=== PATIENT | male | born 1965 | race African-American/Black ===

== ENCOUNTER 2017-01-23 00:52 | Emergency (ER) | payer BC ==
[~2017-01-23] VITALS: Ht 172.7 cm; Wt 124.2 kg
[~2017-01-23 00:52] MED LIST: OMEP40CA PO; eye drop OPR
[2017-01-23 00:56] VITALS: TEMP 37.2; Ht 172.7 cm; Wt 124.2 kg
[2017-01-23] MEDS ORDERED: PRLSR20 PO (01:15)
[2017-01-23] MEDS ORDERED: ONDANSETRON INJ 2 MG/ML 2 ML VIAL IV STA (01:31)
[2017-01-23] MEDS ORDERED: SODIUM CHLORIDE 0.9% 1000ML 1,000 ML IV STA (01:31)
[2017-01-23] MEDS ORDERED: HYDROmorphone INJ 1 MG/ML SYR IV STA (01:31)
--- NOTE | 2017-01-23 01:37 | EMERGENCY ROOM VISIT NOTE ---
History Report prepared by Janet: Shani Arango Under the Supervision of: Dr. Hiwot García M.D. First contact with patient: 01:05 Chief Complaint: RIB PAIN Stated Complaint: RIB PAIN History of Present Illness The patient is a 51 year old male who presents to the Emergency Room with complaints of persistent left rib pain that began prior to arrival. He currently rates his discomfort as a 7/10 in severity. The patient's notes that the patient fell over a trampoline in their house this evening and hit his left ribs. She denies any puncture wound, but states that he has been in excruciating pain since the accident. The patient's states that the patient has had difficulty breathing and speaking since the accident. The patient notes increased pain when sitting up. He denies any tobacco use. The patient states that he takes Omeprazole daily. Source of History: patient, spouse/significant other Onset: prior to arrival Position: other (left rib) Symptom Intensity: 7/10 Timing: other (persistent) Modifying Factors (Worsening): other (sitting up) Note: Associated Symptoms: difficulty breathing and speaking, recent fall Review of Systems See HPI for pertinent positives & negatives. A total of 10 systems reviewed and were otherwise negative. Past Medical & Surgical Medical Problems: (1) Advance care planning (2) Encephalitis (3) Fracture of ribs, two, closed (4) Gastroesophageal reflux disease (5) Laryngeal cancer (6) Left lower lobe pneumonia Family History Diabetes mellitus Heart disease Hypertension Social History Smoking Status: Never Smoker Alcohol Use: none Marital Status: Housing Status: lives with family Occupation Status: employed Current/Historical Medications Scheduled Bimatoprost (Lumigan), 1 DROPS OP HS Fish Oil ([place]-3), 1 CAP PO DAILY Omeprazole (Prilosec), 40 MG PO DAILY Scheduled PRN Hydrocodone/Acetaminophen 5MG/325MG ([place] 5MG/325MG), 1-2 TABLETS PO Q6 PRN for Pain Allergies Coded Allergies: No Known Allergies (Verified , `, 01/23/17) Physical Exam Vital Signs Date Time Temp Pulse Resp B/P Pulse Ox O2 Delivery O2 Flow Rate FiO2 01/23/17 05:41 72 18 118/62 95 Room Air 01/23/17 03:14 87 18 135/84 96 Nasal Cannula 2.0 01/23/17 02:00 65 16 116/80 99 Nasal Cannula 2.0 01/23/17 01:05 80 01/23/17 00:56 37.2 79 30 164/104 96 Room Air Physical Exam Vital signs reviewed. General: Well-appearing male, in some discomfort, noted to be hypertensive. HEENT: No scleral icterus, PERRLA, neck supple. Atraumatic. CHEST: Tender to palpation over the left anterior ribs. Cardiovascular: Regular rate and rhythm, no extra sounds. Pulmonary: Diminished breath sounds on left. Normal work of breathing, splinting with deep inspiration Abdomen: Soft, nontender, nondistended, positive bowel sounds. Musculoskeletal: Atraumatic, no peripheral edema. Neurologic: Patient awake alert and oriented x 3 Skin: Warm, dry, no rash Medical Decision & Procedures ER Provider Diagnostic Interpretation: Rib unilateral x-ray: poor inspiratory effort, normal appearing mediastinum, no pneumothorax, no obvious rib fracture. 1 view chest x-ray: no evidence of pneumothorax, no rib fracture, cardiomegaly, mediastinal widening, likely positional. Laboratory Results 01/23/17 02:00 Red Blood Count 4.60, Mean Corpuscular Volume 84.6, Mean Corpuscular Hemoglobin 28.7, Mean Corpuscular Hemoglobin Concent 33.9, Mean Platelet Volume 11.3, Neutrophils (%) (Auto) 67.6, Lymphocytes (%) (Auto) 18.5, Monocytes (%) (Auto) 9.0, Eosinophils (%) (Auto) 3.9, Basophils (%) (Auto) 0.7, Neutrophils # (Auto) 4.74, Lymphocytes # (Auto) 1.30, Monocytes # (Auto) 0.63, Eosinophils # (Auto) 0.27, Basophils # (Auto) 0.05 01/23/17 02:00 Test 01/23/17 02:00 White Blood Count 7.01 K/uL (4.8-10.8) Red Blood Count 4.60 M/uL (4.7-6.1) Hemoglobin 13.2 g/dL (14.0-18.0) Hematocrit 38.9 % (42-52) Mean Corpuscular Volume 84.6 fL (80-100) Mean Corpuscular Hemoglobin 28.7 pg (25-34) Mean Corpuscular Hemoglobin Concent 33.9 g/dl (32-36) Platelet Count 148 K/uL (130-400) Mean Platelet Volume 11.3 fL (7.4-10.4) Neutrophils (%) (Auto) 67.6 % Lymphocytes (%) (Auto) 18.5 % Monocytes (%) (Auto) 9.0 % Eosinophils (%) (Auto) 3.9 % Basophils (%) (Auto) 0.7 % Neutrophils # (Auto) 4.74 K/uL (1.4-6.5) Lymphocytes # (Auto) 1.30 K/uL (1.2-3.4) Monocytes # (Auto) 0.63 K/uL (0.11-0.59) Eosinophils # (Auto) 0.27 K/uL (0-0.5) Basophils # (Auto) 0.05 K/uL (0-0.2) RDW Standard Deviation 43.8 fL (36.4-46.3) RDW Coefficient of Variation 14.2 % (11.5-14.5) Immature Granulocyte % (Auto) 0.3 % Immature Granulocyte # (Auto) 0.02 K/uL (0.00-0.02) Anion Gap 5.0 mmol/L (3-11) Est Creatinine Clear Calc Drug Dose 101.9 ml/min Estimated GFR () 89.6 Estimated GFR (Non- 77.3 BUN/Creatinine Ratio 13.6 (10-20) Calcium Level 8.1 mg/dl (8.5-10.1) Total Bilirubin 0.2 mg/dl (0.2-1) Direct Bilirubin < 0.1 mg/dl (0-0.2) Aspartate Amino Transf (AST/SGOT) 26 U/L (15-37) Alanine Aminotransferase (ALT/SGPT) 47 U/L (12-78) Alkaline Phosphatase 52 U/L (45-117) Total Protein 6.9 gm/dl (6.4-8.2) Albumin 3.6 gm/dl (3.4-5.0) Laboratory results per my review. Medications Administered Medications (Trade) Dose Ordered Sig/Eliseo Route Start Time Stop Time Status Last Admin Dose Admin Hydromorphone HCl (Dilaudid Inj) 1 mg NOW STAT IV 01/23/17 01:31 01/23/17 01:33 DC 01/23/17 01:41 1 MG Ondansetron HCl 4 mg 4 mg NOW STAT IV 01/23/17 01:31 01/23/17 01:33 DC 01/23/17 01:39 4 MG Sodium Chloride (Nss 1000ml) 1,000 ml @ 999 mls/hr Q1H1M STAT IV 01/23/17 01:31 01/23/17 02:31 DC 01/23/17 01:42 999 MLS/HR Acetaminophen/ Hydrocodone Bitart ([place] 5/325mg Home Pack) 1 homepack UD ONCE PO 01/23/17 04:45 01/23/17 04:46 DC 01/23/17 05:03 1 HOMEPACK Acetaminophen/ Hydrocodone Bitart ([place] 7.5/325 Tab) 1 tab NOW STAT PO 01/23/17 04:40 01/23/17 04:41 DC 01/23/17 05:02 1 TAB ECG Indication: SOB/dyspnea Rate (beats per minute): 81 Rhythm: sinus rhythm Findings: PAC, other (right axis deviation) ED Course 0127: Past medical records reviewed. The patient was evaluated in room A10. A complete history and physical examination was performed. 0131: Ordered Sodium Chloride 1000 ml @ 999 mls/hr IV, Zofran Inj 4 mg IV, Dilaudid Inj 1 mg IV. 0403: I reevaluated the patient and he is resting comfortably. I discussed the exam findings with him and I discussed the treatment plan. He verbalized complete understanding and agreement. He is ready to go home. 0440: Ordered [place] 7.5/235 tab, 1 tab PO. 0445: [place] 5/325 mg homepack 1 homepack PO. Medical Decision Differential diagnosis: Rib contusion, rib fracture, pneumothorax, pneumonia, PE This patient was evaluated and appeared to be in significant discomfort. IV access was obtained and laboratory work was drawn. Patient was given IV Dilaudid and Zofran, hydrated with normal saline solution. EKG reveals sinus rhythm with PACs. Chest x-ray with rib series was performed and reveals no evidence of rib fracture or pneumothorax to my interpretation. Patient was reevaluated and continues to complain of pain. He was given 7.5 mg [place] tablet. Vital signs have remained stable. The patient was educated to the findings. He was given instructions on incentive spirometry. Patient was discharged follow-up with his physician in 24-48 hours. He will return to the ER at any time for worsening of symptoms or any medical concerns. Impression Primary Impression: Rib contusion Scribe Attestation The scribe's documentation has been prepared under my direction and personally reviewed by me in its entirety. I confirm that the note above accurately reflects all work, treatment, procedures, and medical decision making performed by me. Departure Information Dispostion Home / Self-Care Prescriptions Hydrocodone/Acetaminophen 5MG/325MG ([place] 5MG/325MG) Tab 1-2 TABLETS PO Q6 Y for Pain, #20 TAB Prov: Hiwot García M.D. 01/23/17 Referrals Yani Hurt MD (PCP) Forms HOME CARE DOCUMENTATION FORM, IMPORTANT VISIT INFORMATION, WORK / SCHOOL INSTRUCTIONS Patient Instructions My [facility] Additional Instructions Diagnosis: Left rib contusion [place] one to 2 tabs every 6 hours as needed for severe pain. Do not drive or take Tylenol with this medication. Ibuprofen 600 mg every 6 hours as needed for pain with food. Incentive spirometry 10 times every hour while awake. Follow-up with your physician this week for reevaluation. Return to the ER for worsening of symptoms or any medical concerns. Problem Qualifiers Primary Impression: Rib contusion Encounter type: initial encounter Laterality: left Qualified Codes: S20.212A - Contusion of left front wall of thorax, initial encounter
[2017-01-23 02:13] LABS: BASO % 0.7 %; BASO ABS # 0.05 K/uL (0-0.2); COMPLETE YES; EOS % 3.9 %; HEMATOCRIT 38.9 % (42-52); IG% 0.3 %; LYMPH % 18.5 %; MEAN CELL VOLUME 84.6 fL (80-100); MEAN CORPUSCULAR HEMOGLOBIN 28.7 pg (25-34); MEAN CORPUSCULAR HGB CONC 33.9 g/dl (32-36); MEAN PLATELET VOLUME 11.3 fL (7.4-10.4); NEUT % 67.6 %; PLATELET COUNT 148 K/uL (130-400); WHITE BLOOD COUNT 7.01 K/uL (4.8-10.8)
[2017-01-23 02:31] LABS: ALT/SGPT 47 U/L (12-78); AST/SGOT 26 U/L (15-37); BLOOD UREA NITROGEN 15 mg/dl (7-18); BUN/CREATININE RATIO 13.6 (10-20); CALCIUM 8.1 mg/dl (8.5-10.1); CARBON DIOXIDE 28 mmol/L (21-32); CHLORIDE 111 mmol/L (98-107); GLUCOSE 149 mg/dl (70-99); POTASSIUM 3.7 mmol/L (3.5-5.1); SODIUM 144 mmol/L (136-145)
[2017-01-23 02:34] LABS: ALKALINE PHOSPHATASE 52 U/L (45-117)
[2017-01-23] MEDS ORDERED: HYDROCODONE/ACETAMINOPHEN 7.5/325MG TAB PO STA (04:40)
[2017-01-23] MEDS ORDERED: NORCO 5/325MG HOME PACK PO ONE (04:45)
[2017-01-23] MEDS ORDERED: HYDR-5688 PO (04:51)
[2017-01-23 05:41] VITALS: BP 118/62; PULSE 72; O2SAT 95
--- NOTE | 2017-01-23 07:56 | DIAGNOSTIC IMAGING REPORT ---
CHEST ONE VIEW PORTABLE HISTORY: Left-sided chest trauma. COMPARISON: Chest 10/02/2013. FINDINGS: Cardiac silhouette is mildly enlarged. There are low lung volumes. No focal lung consolidations to suggest pneumonia. No evidence for pulmonary edema. No pleural effusions. No pneumothorax. IMPRESSION: Mild cardiomegaly. Otherwise, no acute process within the chest. Electronically signed by: Robbi Pavon M.D. 01/23/2017 7:54 AM Dictated Date/Time: 01/23/2017 7:53 AM
--- NOTE | 2017-01-23 08:02 | DIAGNOSTIC IMAGING REPORT ---
LEFT RIBS UNILATERAL WITH PA CHEST CLINICAL HISTORY: Left-sided chest pain. COMPARISON STUDY: Chest 01/23/2017. FINDINGS: No rib fractures. No pneumothorax. The heart remains mildly enlarged. Low lung volumes. No focal lung consolidations to suggest pneumonia. IMPRESSION: No rib fractures. No pneumothorax. Electronically signed by: Robbi Pavon M.D. 01/23/2017 8:00 AM Dictated Date/Time: 01/23/2017 7:58 AM
[2017-01-24] MEDS ORDERED: BIMA0.01 OP (01:15)
[2017-01-24] MEDS ORDERED: OMEG10007 PO (01:17)
[2017-01-24] MEDS ORDERED: OMEP40CA41 PO (16:19)
== END 2017-01-23 05:42 | disposition home or self-care (01) ==
LOC: EDBD 00:52 → C.EDA 00:53
DX: S20.212A Contusion of left front wall of thorax, initial encounter (principal); I49.1 Atrial premature depolarization; K21.9 Gastro-esophageal reflux disease without esophagitis; Z79.899 Other long term (current) drug therapy; Z85.21 Personal history of malignant neoplasm of larynx; Z82.49 Family history of ischemic heart disease and other diseases of the circulatory system; Z83.3 Family history of diabetes mellitus; W01.0XXA Fall on same level from slipping, tripping and stumbling without subsequent striking against object, initial encounter

== ENCOUNTER 2017-01-24 15:41 | Inpatient (IN) | payer BC ==
[~2017-01-24] VITALS: Ht 172.7 cm; Wt 124.0 kg
[~2017-01-24 15:41] MED LIST changes: +BIMA0.01 OP; +HYDR-5688 PO; +OMEG10007 PO; -OMEP40CA PO; +PRLSR20 PO; -eye drop OPR
--- NOTE | 2017-01-24 15:59 | EMERGENCY ROOM VISIT NOTE ---
History Report prepared by Janet: Uzair Aguirre Under the Supervision of: Dr. Gen Lentz D.O. First contact with patient: 15:53 Chief Complaint: RIB PAIN Stated Complaint: CHEST PAIN History of Present Illness The patient is a 51 year old male who presents to the Emergency Room with complaints of persistent left sided rib pain beginning 2 nights ago. He notes he was walking and tripped on a trampoline, and fell blunt on a pole they had removed from the trampoline and set aside. Afterwards, he was having difficulty breathing, and notes worsening of his pain with breathing, walking, and especially coughing. The patient was here 2 days ago, and was prescribed Ryde which he notes has not relieved his pain. He last took the Ryde around 0830 this morning. He called Dr. Sol and was told to come to the ER for a CT scan. The patient denies having any pain through his neck or back, abdominal pain, or dizziness or lightheadedness upon standing. The patient reports taking medications regularly for acid reflux. Source of History: patient Onset: 2 days ago Position: other (left sided ribs) Quality: other (rib pain) Timing: other (persistent) Modifying Factors (Worsening): breathing, movement, other (coughing) Associated Symptoms: No abdominal pain, No back pain, No neck pain Note: The patient denies dizziness or lightheadedness. Review of Systems See HPI for pertinent positives & negatives. A total of 10 systems reviewed and were otherwise negative. Past Medical & Surgical Medical Problems: (1) Encephalitis (2) Fracture of ribs, two, closed (3) Gastroesophageal reflux disease (4) Laryngeal cancer (5) Left lower lobe pneumonia Family History Diabetes mellitus Heart disease Hypertension Social History Smoking Status: Never Smoker Alcohol Use: none Marital Status: Housing Status: lives with family Occupation Status: employed Current/Historical Medications Scheduled Bimatoprost (Lumigan), 1 DROPS OP HS Fish Oil ([place]-3), 1 CAP PO DAILY Omeprazole (Prilosec), 40 MG PO DAILY Scheduled PRN Hydrocodone/Acetaminophen 5MG/325MG ([place] 5MG/325MG), 1-2 TABLETS PO Q6 PRN for Pain Allergies Coded Allergies: No Known Allergies (Verified , `, 01/23/17) Physical Exam Vital Signs Date Time Temp Pulse Resp B/P Pulse Ox O2 Delivery O2 Flow Rate FiO2 01/24/17 17:15 82 20 134/80 92 Room Air 01/24/17 17:13 79 01/24/17 15:49 36.8 83 20 147/71 95 Room Air Physical Exam GENERAL: Patient is awake alert, and uncomfortable appearing. Patient is moving around gingerly. EYES: The conjunctivae are clear. The pupils are round and reactive. EARS, NOSE, MOUTH AND THROAT: The nose is without any evidence of any deformity. Mucous membranes are moist tongue is midline NECK: The neck is nontender and supple. RESPIRATORY: Normal respiratory effort is noted there is no evidence of wheezing rhonchi or rales CARDIOVASCULAR: Regular rate and rhythm noted there no murmurs rubs or gallops normal S1 normal S2 GASTROINTESTINAL: The abdomen is soft. Bowel sounds are present in all quadrants. Abdomen is nontender BACK: No midline tenderness or or step-off noted range of motion in flexion extension as well as rotation no signs of muscle spasm noted MUSCULOSKELETAL/EXTREMITIES: There is no evidence of gross deformity full range of motion is noted in the hips and shoulders. Significant tenderness over the left anterior chest wall. Circular area consistent with the mechanism of injury. Surrounding ecchymosis noted. SKIN: There is no obvious evidence of any rash. There are no petechiae, pallor or cyanosis noted. NEUROLOGIC: Patient is awake alert and oriented x3 strength is symmetric patellar reflexes are 2+ bilaterally Medical Decision & Procedures ER Provider Diagnostic Interpretation: Radiology results as stated below per my review and radiologist interpretation: CT SCAN OF THE CHEST WITHOUT IV CONTRAST FINDINGS: Thyroid: Imaged portions of the thyroid gland are normal in size and attenuation. Thoracic aorta: The thoracic aorta is normal in caliber and demonstrates standard 3-vessel arch anatomy. Heart: The heart is mildly enlarged and without pericardial effusion. There are scattered coronary artery calcifications. Lungs and pleural spaces: Evaluation of the lung parenchyma is modestly degraded by motion artifact. Mild emphysematous change is observed. There is a small to moderate left pleural effusion with associated left basilar consolidation. A trace right pleural effusion is identified with associated atelectasis. Layering secretions are noted in the trachea. No pneumothorax is seen. Mediastinum: There is no mediastinal lymphadenopathy. Alycia: Not well assessed without IV contrast. Axillae: There is no axillary lymphadenopathy. Upper abdomen: The liver is enlarged and steatotic. Partially visualized upper abdominal viscera is otherwise within normal limits. Skeletal structures: There are acute and nondistracted left anterior 6th and 7th rib fractures. There are mild and age indeterminant superior endplate compression deformities of T5, T7, and T8. No lytic or blastic bony lesions are seen. Arthritic change is noted in the left shoulder. A right cervical rib is incidentally noted. Soft tissues: There is soft tissue contusion the anterior left lower chest. IMPRESSION: 1. Cardiomegaly and emphysema. 2. There are acute nondistracted left anterior 6th and 7th rib fractures. Associated soft tissue contusion is seen in the anterior left lower chest. 3. There are mild and age indeterminant superior endplate compression deformity is at T5, T7, and T8. Correlate for point tenderness. 4. Small to moderate left pleural effusion with associated consolidation. This could represent atelectasis and/or an infectious/inflammatory pneumonitis. 5. There is trace right pleural effusion. 6. Hepatomegaly and hepatic steatosis. Electronically signed by: Faheem Thomas M.D. 01/24/2017 5:05 PM Dictated Date/Time: 01/24/2017 4:43 PM Laboratory Results 01/24/17 17:05 Red Blood Count 4.82, Mean Corpuscular Volume 85.3, Mean Corpuscular Hemoglobin 29.3, Mean Corpuscular Hemoglobin Concent 34.3, Mean Platelet Volume 11.5, Neutrophils (%) (Auto) 71.8, Lymphocytes (%) (Auto) 13.7, Monocytes (%) (Auto) 12.3, Eosinophils (%) (Auto) 1.6, Basophils (%) (Auto) 0.4, Neutrophils # (Auto ) 6.15, Lymphocytes # (Auto) 1.17, Monocytes # (Auto) 1.05, Eosinophils # (Auto ) 0.14, Basophils # (Auto) 0.03 01/24/17 17:05 Test 01/24/17 17:05 White Blood Count 8.56 K/uL (4.8-10.8) Red Blood Count 4.82 M/uL (4.7-6.1) Hemoglobin 14.1 g/dL (14.0-18.0) Hematocrit 41.1 % (42-52) Mean Corpuscular Volume 85.3 fL (80-100) Mean Corpuscular Hemoglobin 29.3 pg (25-34) Mean Corpuscular Hemoglobin Concent 34.3 g/dl (32-36) Platelet Count 142 K/uL (130-400) Mean Platelet Volume 11.5 fL (7.4-10.4) Neutrophils (%) (Auto) 71.8 % Lymphocytes (%) (Auto) 13.7 % Monocytes (%) (Auto) 12.3 % Eosinophils (%) (Auto) 1.6 % Basophils (%) (Auto) 0.4 % Neutrophils # (Auto) 6.15 K/uL (1.4-6.5) Lymphocytes # (Auto) 1.17 K/uL (1.2-3.4) Monocytes # (Auto) 1.05 K/uL (0.11-0.59) Eosinophils # (Auto) 0.14 K/uL (0-0.5) Basophils # (Auto) 0.03 K/uL (0-0.2) RDW Standard Deviation 44.1 fL (36.4-46.3) RDW Coefficient of Variation 14.1 % (11.5-14.5) Immature Granulocyte % (Auto) 0.2 % Immature Granulocyte # (Auto) 0.02 K/uL (0.00-0.02) Prothrombin Time 10.8 SECONDS (9.0-12.0) Prothromb Time International Ratio 1.0 (0.9-1.1) Activated Partial Thromboplast Time 25.7 SECONDS (21.0-31.0) Partial Thromboplastin Ratio 1.0 Anion Gap 8.0 mmol/L (3-11) Est Creatinine Clear Calc Drug Dose 133.4 ml/min Estimated GFR () 117.5 Estimated GFR (Non- 101.4 BUN/Creatinine Ratio 12.0 (10-20) Calcium Level 8.4 mg/dl (8.5-10.1) Total Bilirubin 0.6 mg/dl (0.2-1) Aspartate Amino Transf (AST/SGOT) 27 U/L (15-37) Alanine Aminotransferase (ALT/SGPT) 41 U/L (12-78) Alkaline Phosphatase 50 U/L (45-117) Total Protein 7.1 gm/dl (6.4-8.2) Albumin 3.6 gm/dl (3.4-5.0) Medications Administered Medications (Trade) Dose Ordered Sig/Eliseo Route Start Time Stop Time Status Last Admin Dose Admin Oxycodone HCl 10 mg 10 mg NOW STAT PO 01/24/17 16:04 01/24/17 16:05 DC 01/24/17 16:19 10 MG Sodium Chloride (Nss 1000ml) 1,000 ml @ 125 mls/hr Q8H STAT IV 01/24/17 16:47 01/25/17 00:46 01/24/17 17:08 125 MLS/HR Morphine Sulfate (MoRPHine SULFATE INJ) 4 mg Q15M PRN IV 01/24/17 17:00 02/07/17 16:59 01/24/17 17:10 4 MG Ondansetron HCl (Zofran Inj) 4 mg NOW STAT IV 01/24/17 16:47 01/24/17 16:48 DC 01/24/17 17:09 4 MG ED Course 1555: The patient was evaluated in room A10. A complete history and physical examination were performed. 1604: Ordered Oxycodone HCl 10 mg PO. 1642: I updated the patient. 1647: Ordered Zofran Inj 4 mg IV, and NSS 1,000 ml @ 125 mls/hr IV. 1655: I discussed the patient's case with Dr. Urban who recommends drainage of pleural fluids. 1700: Ordered Morphine Sulfate 4 mg IV. 1735: I discussed the patient's case with Dr. Sol. The patient will be evaluated for further management. Medical Decision Differential diagnosis: Etiologies such as fracture, dislocation, intra-abdominal, pneumothorax, intrathoracic , intracranial, neurologic, as well as other traumatic pathologies were entertained. Nursing notes reviewed. The patient is a 51-year-old male who presented to the emergency department for an evaluation of chest pain. The patient had a fall 2 days ago he landed on a bar that was sticking up from the ground onto his left chest. The patient had very severe left-sided chest pain. He was seen initially in our emergency department. X-rays at that time did not reveal any definite rib fractures. The patient returns emergency department today because worsening and ongoing pain. He appeared to be in extreme pain when I initially evaluated him. He was treated with pain medication in the emergency department. His symptoms improved somewhat but he still had very severe pain with any movement. CAT scan of the chest did reveal multiple rib fractures but more worrisome was the presence of pleural fluid which could be consistent with hemothorax. I discussed this case with the on-call [facility] [address] hospitalist. I also discussed his case with the on-call cardiothoracic surgeon. The patient will require further pain management in the hospital but will likely require drainage of the pleural fluid to avoid any constipation, road. The patient was reevaluated multiple times. Consults Time Called: 1650 Consulting Physician: AUNDREA De La Paz Returned Call: 1655 I discussed the patient's case with Dr. Urban who recommends drainage of pleural fluids. Additional Consults: Time Called: 1725 Consulted Physician: AUNDREA Patterson Returned Call: 1735 Additional Comments: I discussed the patient's case with Dr. Sol. The patient will be evaluated for further management. Impression Primary Impression: Contusion of left chest wall Additional Impressions: Multiple fractures of ribs of left side Hemothorax Scribe Attestation The scribe's documentation has been prepared under my direction and personally reviewed by me in its entirety. I confirm that the note above accurately reflects all work, treatment, procedures, and medical decision making performed by me. Departure Information Dispostion Being Evaluated By Hospitalist Referrals Yani Hurt MD (PCP) Patient Instructions My [facility] Problem Qualifiers Primary Impression: Contusion of left chest wall Encounter type: subsequent encounter Qualified Codes: S20.212D - Contusion of left front wall of thorax, subsequent encounter Additional Impressions: Multiple fractures of ribs of left side Encounter type: subsequent encounter Fracture type: closed Fracture healing : with routine healing Qualified Codes: S22.42XD - Multiple fractures of ribs , left side, subsequent encounter for fracture with routine healing
[2017-01-24] MEDS ORDERED: OXYCODONE HCL IR 5 MG TAB (IMMEDIATE RELEASE) PO STA (16:04)
[2017-01-24] MEDS ORDERED: OMEP40CA41 PO (16:19)
[2017-01-24] MEDS ORDERED: SODIUM CHLORIDE 0.9% 1000ML 1,000 ML IV STA (16:47)
[2017-01-24] MEDS ORDERED: ONDANSETRON INJ 2 MG/ML 2 ML VIAL IV STA (16:47)
[2017-01-24] MEDS ORDERED: MoRPHine SULFATE 4 MG/ML 1 ML CARP\\VIAL IV PRN (17:00)
--- NOTE | 2017-01-24 17:07 | DIAGNOSTIC IMAGING REPORT ---
CT SCAN OF THE CHEST WITHOUT IV CONTRAST CLINICAL HISTORY: Fall. Left-sided chest wall pain. COMPARISON STUDY: Chest x-ray dated 01/23/2017. Chest CT dated 05/24/2013. TECHNIQUE: CT scan of the thorax was performed from the thoracic inlet to the upper abdomen. Images are reviewed in the axial, sagittal, and coronal planes. IV contrast was not administered for this examination as per the referring clinician. CT DOSE: 1020.93 mGy.cm FINDINGS: Thyroid: Imaged portions of the thyroid gland are normal in size and attenuation. Thoracic aorta: The thoracic aorta is normal in caliber and demonstrates standard 3-vessel arch anatomy. Heart: The heart is mildly enlarged and without pericardial effusion. There are scattered coronary artery calcifications. Lungs and pleural spaces: Evaluation of the lung parenchyma is modestly degraded by motion artifact. Mild emphysematous change is observed. There is a small to moderate left pleural effusion with associated left basilar consolidation. A trace right pleural effusion is identified with associated atelectasis. Layering secretions are noted in the trachea. No pneumothorax is seen. Mediastinum: There is no mediastinal lymphadenopathy. Alycia: Not well assessed without IV contrast. Axillae: There is no axillary lymphadenopathy. Upper abdomen: The liver is enlarged and steatotic. Partially visualized upper abdominal viscera is otherwise within normal limits. Skeletal structures: There are acute and nondistracted left anterior 6th and 7th rib fractures. There are mild and age indeterminant superior endplate compression deformities of T5, T7, and T8. No lytic or blastic bony lesions are seen. Arthritic change is noted in the left shoulder. A right cervical rib is incidentally noted. Soft tissues: There is soft tissue contusion the anterior left lower chest. IMPRESSION: 1. Cardiomegaly and emphysema. 2. There are acute nondistracted left anterior 6th and 7th rib fractures. Associated soft tissue contusion is seen in the anterior left lower chest. 3. There are mild and age indeterminant superior endplate compression deformity is at T5, T7, and T8. Correlate for point tenderness. 4. Small to moderate left pleural effusion with associated consolidation. This could represent atelectasis and/or an infectious/inflammatory pneumonitis. 5. There is trace right pleural effusion. 6. Hepatomegaly and hepatic steatosis. Electronically signed by: Faheem Thomas M.D. 01/24/2017 5:05 PM Dictated Date/Time: 01/24/2017 4:43 PM
[2017-01-24 17:16] LABS: BASO % 0.4 %; BASO ABS # 0.03 K/uL (0-0.2); COMPLETE YES; EOS % 1.6 %; HEMATOCRIT 41.1 % (42-52); IG% 0.2 %; LYMPH % 13.7 %; LYMPH ABS # 1.17 K/uL (1.2-3.4); MEAN CELL VOLUME 85.3 fL (80-100); MEAN CORPUSCULAR HEMOGLOBIN 29.3 pg (25-34); MEAN CORPUSCULAR HGB CONC 34.3 g/dl (32-36); MEAN PLATELET VOLUME 11.5 fL (7.4-10.4); MONO % 12.3 %; NEUT % 71.8 %; PLATELET COUNT 142 K/uL (130-400); RED BLOOD COUNT 4.82 M/uL (4.7-6.1); WHITE BLOOD COUNT 8.56 K/uL (4.8-10.8)
[2017-01-24 17:30] LABS: PROTHROMBIN TIME (PATIENT) 10.8 SECONDS (9.0-12.0)
[2017-01-24 17:33] LABS: CALCIUM 8.4 mg/dl (8.5-10.1); CREATININE 0.84 mg/dl (0.60-1.40); POTASSIUM 3.6 mmol/L (3.5-5.1)
[2017-01-24 18:15] VITALS: O2SAT 92; Ht 172.7 cm; Wt 124.0 kg
[2017-01-24] MEDS ORDERED: HYDROCODONE/ACETAMOPHEN 5/325MG TAB PO PRN ×2 (18:15)
[2017-01-24] MEDS ORDERED: ACETAMINOPHEN 325 MG TAB PO PRN (18:15)
[2017-01-24] MEDS ORDERED: ONDANSETRON INJ 2 MG/ML 2 ML VIAL IV PRN (18:15)
[2017-01-24] MEDS ORDERED: ZOLPIDEM TARTRATE 5 MG TAB PO PRN (18:15)
[2017-01-24] MEDS ORDERED: HYDROmorphone INJ 0.5 MG/0.5 ML SYR IV PRN (18:30)
[2017-01-24] MEDS ORDERED: IPRATROPIUM BROMIDE NEB SOLN 0.02% 2.5 ML VIAL INH PRN (18:30)
[2017-01-24] MEDS ORDERED: LEVALBUTEROL 1.25MG/0.5ML NEB INH PRN (18:30)
[2017-01-24 19:49] VITALS: BP 136/77; PULSE 72; TEMP 36.7; O2SAT 92
[2017-01-24 20:00] VITALS: BP 136/77; PULSE 72; TEMP 36.7; O2SAT 92
--- NOTE | 2017-01-24 20:05 | History and Physical ---
History & Physical Date & Time of Service: Jan 24, 2017 at 19:48 Chief Complaint: Fracture Of Ribs, Two, Closed,Lt Lower Lobe Pneumo Primary Care Physician: Yani Hurt MD History of Present Illness Source: patient, spouse The patient is a 51-year-old male who initially presented to the emergency department last evening with left sided rib cage pain that began after falling on a trampoline pole. Since that time his pain has worsened, and he has become more short of breath. He was advised to come to the emergency department due to worsening symptoms, and CT of the chest tonight confirms acute left anterior sixth and seventh rib fractures and left lower lobe pneumonia with pleural effusion per radiology reading, but on a clinical basis could be suggestive of a hemothorax. 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 Status post completion of radiation therapy 07/20/2013 received 6300 cGy Status: Resolved Family History Diabetes mellitus Heart disease Hypertension Social History Smoking Status: Never Smoker Smokeless Tobacco Use: No Alcohol Use: none Drug Use: none Marital Status: Housing status: lives with family Occupational Status: employed Immunizations History of Influenza Vaccine: Yes History of Tetanus Vaccine?: unknown History of Pneumococcal: No History of Hepatitis B Vaccine: No Multi-Drug Resistant Organisms History of MDRO: No Allergies Coded Allergies: No Known Allergies (Verified , `, 01/23/17) Home Medications Scheduled Bimatoprost (Lumigan), 1 DROPS OP HS Fish Oil ([place]-3), 1 CAP PO DAILY Omeprazole (Prilosec), 40 MG PO DAILY Scheduled PRN Hydrocodone/Acetaminophen 5MG/325MG ([place] 5MG/325MG), 1-2 TABLETS PO Q6 PRN for Pain Review of Systems The patient denies palpitations, lower extremity swelling, vision change, hearing change, sore throat, fevers, chills, sweats, weight change, fatigue, nausea, vomiting, abdominal pain, pelvic pain, blood in urine or stool, dysuria , urinary frequency or urgency, lightheadedness, dizziness, headache, memory loss, rash, imbalance, focal or generalized weakness, numbness or tingling in arms or legs, arthralgias or myalgias, neck pain, night sweats, or allergy symptoms. The review of systems is otherwise negative other than for that already noted above, and at least 10 systems have been reviewed. Physical Exam Vital Signs Date Time Temp Pulse Resp B/P Pulse Ox O2 Delivery O2 Flow Rate FiO2 01/24/17 18:46 80 18 129/90 92 Room Air 01/24/17 18:15 92 Room Air 01/24/17 17:15 82 20 134/80 92 Room Air 01/24/17 17:13 79 01/24/17 15:49 36.8 83 20 147/71 95 Room Air The patient is awake, well-developed and adequately nourished, alert and oriented 3, normocephalic and atraumatic, lying in bed and in moderate distress secondary to pain. HEENT--PERRL, EOMI, mucous membranes and oropharynx dry. Neck--supple, no JVD or bruits, thyroid normal, trachea midline, no adenopathy. Heart--normal S1 and S2, no extra beats, no murmurs, rubs or gallops. Lungs--decreased breath sounds at the left base, mild to moderate intermittent respiratory distress associated with painful respiration, no accessory muscle use. Abdomen--normal bowel sounds and soft, nontender and nondistended, no hernias or masses, no organomegaly. Extremities--no cyanosis, clubbing or edema. There are good distal pulses b/l. Dermatologic--bruise over left sixth and seventh rib areas. Neurologic--cranial nerves II through XII grossly intact, motor and sensory examination normal. Rheumatologic--I'm dictating the dictated appetite severe pain over left sixth and seventh ribs. Psychiatric--normal affect. Diagnostics Laboratory Results Results Past 24 Hours Test 01/24/17 17:05 Range/Units White Blood Count 8.56 4.8-10.8 K/uL Red Blood Count 4.82 4.7-6.1 M/uL Hemoglobin 14.1 14.0-18.0 g/dL Hematocrit 41.1 42-52 % Mean Corpuscular Volume 85.3 80-100 fL Mean Corpuscular Hemoglobin 29.3 25-34 pg Mean Corpuscular Hemoglobin Concent 34.3 32-36 g/dl Platelet Count 142 130-400 K/uL Mean Platelet Volume 11.5 7.4-10.4 fL Neutrophils (%) (Auto) 71.8 % Lymphocytes (%) (Auto) 13.7 % Monocytes (%) (Auto) 12.3 % Eosinophils (%) (Auto) 1.6 % Basophils (%) (Auto) 0.4 % Neutrophils # (Auto) 6.15 1.4-6.5 K/uL Lymphocytes # (Auto) 1.17 1.2-3.4 K/uL Monocytes # (Auto) 1.05 0.11-0.59 K/uL Eosinophils # (Auto) 0.14 0-0.5 K/uL Basophils # (Auto) 0.03 0-0.2 K/uL RDW Standard Deviation 44.1 36.4-46.3 fL RDW Coefficient of Variation 14.1 11.5-14.5 % Immature Granulocyte % (Auto) 0.2 % Immature Granulocyte # (Auto) 0.02 0.00-0.02 K/uL Prothrombin Time 10.8 9.0-12.0 SECONDS Prothromb Time International Ratio 1.0 0.9-1.1 Activated Partial Thromboplast Time 25.7 21.0-31.0 SECONDS Partial Thromboplastin Ratio 1.0 Sodium Level 142 136-145 mmol/L Potassium Level 3.6 3.5-5.1 mmol/L Chloride Level 106 98-107 mmol/L Carbon Dioxide Level 28 21-32 mmol/L Anion Gap 8.0 3-11 mmol/L Blood Urea Nitrogen 10 7-18 mg/dl Creatinine 0.84 0.60-1.40 mg/dl Est Creatinine Clear Calc Drug Dose 133.4 ml/min Estimated GFR () 117.5 Estimated GFR (Non- 101.4 BUN/Creatinine Ratio 12.0 10-20 Random Glucose 91 70-99 mg/dl Calcium Level 8.4 8.5-10.1 mg/dl Total Bilirubin 0.6 0.2-1 mg/dl Direct Bilirubin 0.2 0-0.2 mg/dl Aspartate Amino Transf (AST/SGOT) 27 15-37 U/L Alanine Aminotransferase (ALT/SGPT) 41 12-78 U/L Alkaline Phosphatase 50 45-117 U/L Total Protein 7.1 6.4-8.2 gm/dl Albumin 3.6 3.4-5.0 gm/dl Diagnostic Radiology Patient Name: AVRIL POE Unit Number: [id number] Dictated: 01/24/171642 Transcribed: 01/24/171642 EV Printed Date/Time: [~ rep prt dt]/[~ rep prt tm] [~ rep ct labl] - [~ rep ct ivnm] [facility] Radiology Department [place] [id number] Dictated: 01/24/171642 Transcribed: 01/24/171642 EV Printed Date/Time: [~ rep prt dt]/[~ rep prt tm] [~ rep ct labl] - [~ rep ct ivnm] [~ rep ct add3]] CT SCAN OF THE CHEST WITHOUT IV CONTRAST CLINICAL HISTORY: Fall. Left-sided chest wall pain. COMPARISON STUDY: Chest x-ray dated 01/23/2017. Chest CT dated 05/24/2013. TECHNIQUE: CT scan of the thorax was performed from the thoracic inlet to the upper abdomen. Images are reviewed in the axial, sagittal, and coronal planes. IV contrast was not administered for this examination as per the referring clinician. CT DOSE: 1020.93 mGy.cm FINDINGS: Thyroid: Imaged portions of the thyroid gland are normal in size and attenuation. Thoracic aorta: The thoracic aorta is normal in caliber and demonstrates standard 3-vessel arch anatomy. Heart: The heart is mildly enlarged and without pericardial effusion. There are scattered coronary artery calcifications. Lungs and pleural spaces: Evaluation of the lung parenchyma is modestly degraded by motion artifact. Mild emphysematous change is observed. There is a small to moderate left pleural effusion with associated left basilar consolidation. A trace right pleural effusion is identified with associated atelectasis. Layering secretions are noted in the trachea. No pneumothorax is seen. Mediastinum: There is no mediastinal lymphadenopathy. Alycia: Not well assessed without IV contrast. Axillae: There is no axillary lymphadenopathy. Upper abdomen: The liver is enlarged and steatotic. Partially visualized upper abdominal viscera is otherwise within normal limits. Skeletal structures: There are acute and nondistracted left anterior 6th and 7th rib fractures. There are mild and age indeterminant superior endplate compression deformities of T5, T7, and T8. No lytic or blastic bony lesions are seen. Arthritic change is noted in the left shoulder. A right cervical rib is incidentally noted. Soft tissues: There is soft tissue contusion the anterior left lower chest. IMPRESSION: 1. Cardiomegaly and emphysema. 2. There are acute nondistracted left anterior 6th and 7th rib fractures. Associated soft tissue contusion is seen in the anterior left lower chest. 3. There are mild and age indeterminant superior endplate compression deformity is at T5, T7, and T8. Correlate for point tenderness. 4. Small to moderate left pleural effusion with associated consolidation. This could represent atelectasis and/or an infectious/inflammatory pneumonitis. 5. There is trace right pleural effusion. 6. Hepatomegaly and hepatic steatosis. Electronically signed by: Faheem Thomas M.D. 01/24/2017 5:05 PM Dictated Date/Time: 01/24/2017 4:43 PM The status of this report is Signed. Draft = Not yet reviewed or approved by Radiologist. Signed = Reviewed and approved by Radiologist. <AttendingPhy></AttendingPhy> <FamilyPhy>Yani Hurt MD</FamilyPhy> < PrimaryPhy>Yani Hurt MD</PrimaryPhy> <UnitNumber>[id number]</UnitNumber > <VisitNumber>[id number]</VisitNumber> <PatientName>AVRIL POE</ PatientName> <DateOfBirth>1965</DateOfBirth> <Location>[facility]</Location> < ServiceDate>01/24/17</ServiceDate> <MNE>ESINDI</MNE> <OrderingPhy>Gen Lentz D.O.</OrderingPhy> <OrderingPhyMNE>f rep ord dr olguin</OrderingPhyMNE> <DictatingPhyMNE>f rep dict dr olguin</DictatingPhyMNE> <CCListMNE>f rep ct sharif</ CCListMNE> <AdmittingPhyMNE>f pt admit dr olguin</AdmittingPhyMNE> <AttendingPhyMNE >f pt attend dr olguin</AttendingPhyMNE> <ConsultingPhyMNE>f pt consult dr olguin</ConsultingPhyMNE> <FamilyPhyMNE>f pt fam dr olguin</FamilyPhyMNE> <OtherPhyMNE>f pt other dr loguin</OtherPhyMNE> < PrimaryPhyMNE>f pt prim care dr olguin</PrimaryPhyMNE> <ReferringPhyMNE>f pt referring dr olguin</ReferringPhyMNE> Impression Assessment and Plan Acute Left anterior sixth and seventh rib fractures status post fall--the patient be admitted to the medical surgical floor. He'll be placed on Lidoderm patch topically, hydrocodone with acetaminophen 5/325, 1-2 by mouth every 6 hours when necessary, and Dilaudid 0.51 mg IV every 2 hours when necessary. Left lower lobe pneumonia/parapneumonic effusion versus hemothorax--the patient will be placed on ceftriaxone 1 g IV daily, levofloxacin 500 mg IV every 24 hours, Xopenex with Atrovent nebulizer every 6 hours while awake and every 2 hours when necessary. We'll consult Dr. Logan for possible thoracentesis in the morning. T5, T7 and T8 age indeterminate superior endplate fractures--do not think that is related to his recent fall. He does,by his 's report, have people walking on his back, some weighing up to 150 pounds, and suspect that this may have caused these fractures. He has had thoracic back pain for the past few weeks per his 's report. GERD--change omeprazole to 40 mg by mouth daily to pantoprazole 40 mg by mouth daily. Glaucoma--continue Lumigan and some solution 1 drop OPB at bedtime. Laryngeal cancer--not active at this time. Level of Care Med/Surg Advanced Directives Existing Advance Directive: No Existing Living Will: No Existing Power of Telegraph Printer Mechanic: No Resuscitation Status FULL RESUSCITATION VTE Prophylaxis VTE Risk Assessment Done? Y/N: Yes Risk Level: Moderate Given or contraindicated: SCD's Social Service Consult None Apply
[2017-01-24] MEDS: CEFTRIAXONE SOD INJ 1 GM in DEXTROSE 5% ADD-VANTAGE 50ML 50 ML IV SCH (20:06)
[2017-01-24] MEDS ORDERED: OXYCODONE/ACETAMINOPHEN 5-325 TAB PO PRN (20:15)
[2017-01-24] MEDS ORDERED: LEVALBUTEROL/IPRATROPIUM NEB INH SCH (21:00)
[2017-01-24] MEDS: LEVALBUTEROL 1.25MG/0.5ML NEB INH SCH (21:00)
[2017-01-24] MEDS: IPRATROPIUM BROMIDE NEB SOLN 0.02% 2.5 ML VIAL INH SCH (21:00)
[2017-01-24] MEDS: LIDODERM (LIDOCAINE) PATCH 5% TD SCH (21:16)
[2017-01-24] MEDS: LEVOFLOXACIN / D5W 500 MG in PREMIXED IN D5W 100 ML IV SCH (21:16)
[2017-01-24] MEDS: OXYCODONE/ACETAMINOPHEN 5-325 TAB PO PRN (21:52)
[2017-01-24] MEDS: BIMATOPROST 0.01% OP SOLN 2.5 ML BTL OP SCH (23:38)
[2017-01-25] VITALS (9 sets, daily range): BP systolic 100–121; BP diastolic 65–81; PULSE 60–82; TEMP 36.7–36.8; O2SAT 91–97
[2017-01-25] MEDS: IPRATROPIUM BROMIDE NEB SOLN 0.02% 2.5 ML VIAL INH SCH ×4 (02:07→19:15)
[2017-01-25] MEDS: LEVALBUTEROL 1.25MG/0.5ML NEB INH SCH ×4 (02:08→19:15)
[2017-01-25] MEDS: OXYCODONE/ACETAMINOPHEN 5-325 TAB PO PRN ×4 (05:38→21:02)
[2017-01-25 07:01] LABS: BASO % 0.5 %; BASO ABS # 0.04 K/uL (0-0.2); COMPLETE YES; EOS % 3.2 %; HEMATOCRIT 40.1 % (42-52); IG% 0.1 %; LYMPH % 15.5 %; LYMPH ABS # 1.15 K/uL (1.2-3.4); MEAN CELL VOLUME 85.5 fL (80-100); MEAN CORPUSCULAR HEMOGLOBIN 29.4 pg (25-34); MEAN CORPUSCULAR HGB CONC 34.4 g/dl (32-36); MEAN PLATELET VOLUME 11.5 fL (7.4-10.4); MONO % 15.4 %; NEUT % 65.3 %; PLATELET COUNT 133 K/uL (130-400); RED BLOOD COUNT 4.69 M/uL (4.7-6.1); WHITE BLOOD COUNT 7.42 K/uL (4.8-10.8)
[2017-01-25 07:20] LABS: BUN/CREATININE RATIO 12.4 (10-20); CALCIUM 8.4 mg/dl (8.5-10.1); CREATININE 0.85 mg/dl (0.60-1.40); MAGNESIUM 2.1 mg/dl (1.8-2.4); POTASSIUM 3.7 mmol/L (3.5-5.1)
[2017-01-25] MEDS ORDERED: LIDODERM (LIDOCAINE) PATCH 5% TD SCH (08:00)
[2017-01-25] MEDS: PANTOprazole SOD 40 MG TAB PO SCH (08:04)
--- NOTE | 2017-01-25 13:55 | SURGICAL CONSULTATION ---
DATE OF CONSULTATION: 01/25/2017 REASON FOR CONSULTATION: Left pleural effusion. HISTORY OF PRESENT ILLNESS: Nima Hill is a 51-year-old male who actually has an interesting history of laryngeal carcinoma who had radiation therapy for vocal cord cancer 4 years ago. He has never smoked cigarettes. He fell and landed on a large pipe in his left anterior left lower chest over his costal cartilage. He became short of breath and his pain worsened. He went to the Emergency Room and he was discharged to home, but then came back with increasing pain. A CT of chest showed he did have some 6th and 7th rib fractures, but also had some consolidation in the left lower lobe with a pleural effusion. I was asked to evaluate him for drainage of this. PAST MEDICAL HISTORY: 1. Encephalitis in the past. 2. Gastroesophageal reflux disease. 3. History of laryngeal carcinoma. PAST SURGICAL HISTORY: Hernia repair and left knee arthroscopy. MEDICATIONS: Lumigan eyedrops, fish oil, and Prilosec. ALLERGIES: No known drug allergies. SOCIAL HISTORY: The patient's parents are from [place]. He grew up in [place]. He works at the long-term here. He and his live in [place] and have been there for several years. He lives at home with his and their 2 children together in middle school. FAMILY MEDICAL HISTORY: The patient's mother and father are still living and have hypertension. His children are healthy. There is a history of diabetes mellitus and heart diseases in the family also. REVIEW OF SYSTEMS: Up until the time this happened, the patient had no complaints. He had no weight loss. He had no hoarseness. He denied fever, chills or productive cough. He had no chest pain or palpitations other than that described in history of present illness. He has had no nausea, vomiting or symptoms. He had no peripheral edema. He had no visual or auditory symptoms. He had no skin breakdown. PHYSICAL EXAMINATION: GENERAL: This is a heavyset 5 feet 8 inches and 273 pound male who is awake, alert and oriented. HEENT: His extraocular movements are intact. His pupils are equal, round and reactive. His sclerae are anicteric. He has no nasolabial flattening. His tongue is midline. He has no oral mucosal lesions. His teeth are in good repair. NECK: Supple. I detect no supraclavicular or cervical lymphadenopathy or neck vein distention. He has no thyromegaly. He is actually moving air well. He has no wheezing or rales. He has mildly decreased breath sounds in the left base posteriorly. He has an ecchymotic area over his left anterior lower chest below his nipple and then lateral. HEART: He has a regular rate and rhythm of his heart without a rub. ABDOMEN: Soft, nontender. He has no peripheral edema. He has no joint effusions. NEUROLOGIC: He is completely intact. Cranial nerves II-XII are intact. DATA: I reviewed his CT scan, he does have some consolidation in the left lower lobe, but at this point, he does have some homogenous fluid. ASSESSMENT AND PLAN: Left pleural fluid. I think this is enough to cause a problem currently. I would like to follow him along. We could tap him but quite frankly I do not think it is indicated at this point. We would follow along and I would check serial x-rays. Mobilization will be sinclair to this patient.
--- NOTE | 2017-01-25 15:33 | Hospitalist Progress Note ---
Hospitalist Progress Note Date of Service Jan 25, 2017. Subjective Pt evaluation today including: conversation w/ patient, chart review, lab review, review of studies Patient with pleuritic pain with deep breaths feels better with percocet Medications Medications (Trade) Dose Ordered Sig/Eliseo Route Start Time Stop Time Status Last Admin Dose Admin Oxycodone HCl 10 mg 10 mg NOW STAT PO 01/24/17 16:04 01/24/17 16:05 DC 01/24/17 16:19 10 MG Sodium Chloride (Nss 1000ml) 1,000 ml @ 125 mls/hr Q8H STAT IV 01/24/17 16:47 01/24/17 20:21 DC 01/24/17 17:08 125 MLS/HR Morphine Sulfate (MoRPHine SULFATE INJ) 4 mg Q15M PRN IV 01/24/17 17:00 01/24/17 20:21 DC 01/24/17 17:10 4 MG Ondansetron HCl (Zofran Inj) 4 mg NOW STAT IV 01/24/17 16:47 01/24/17 16:48 DC 01/24/17 17:09 4 MG Acetaminophen (Tylenol Tab) 650 mg Q4H PRN PO 01/24/17 18:15 02/23/17 18:14 01/24/17 20:10 650 MG Zolpidem Tartrate (Ambien Tab) 5 mg HSZ PRN PO 01/24/17 18:15 02/23/17 18:14 01/24/17 23:43 5 MG Bimatoprost (Lumigan 0.01%) 1 drops HS OP 01/24/17 21:00 02/23/17 20:59 01/24/17 23:38 1 DROPS Pantoprazole Sodium 40 mg 40 mg QAM PO 01/25/17 08:00 02/24/17 08:59 01/25/17 08:04 40 MG Ceftriaxone Sodium 1 gm/ Dextrose 50 ml @ 100 mls/hr Q24H IV 01/24/17 20:00 01/31/17 19:59 01/24/17 20:06 100 MLS/HR Levofloxacin/Prmx (Levaquin / D5W/ Premixed D5W) 100 ml @ 100 mls/hr Q24H IV 01/24/17 21:00 01/31/17 20:59 01/24/17 21:16 100 MLS/HR Ipratropium [place] (Atrovent 0.02% 0.5MG/2.5ML Neb) 0.5 mg Q6R INH 01/24/17 21:00 02/23/17 20:59 01/25/17 14:02 0.5 MG Levalbuterol (Xopenex 1.25MG/ 0.5ML Neb) 1.25 mg Q6R INH 01/24/17 21:00 02/23/17 20:59 01/25/17 14:02 1.25 MG Oxycodone/ Acetaminophen (Percocet 5-325mg Tab) 2 tab Q4H PRN PO 01/24/17 20:15 02/07/17 20:14 01/25/17 10:56 2 TAB Lidocaine (Lidoderm Patch 5%) 1 patch HS TD 01/24/17 22:00 02/23/17 21:59 01/24/17 21:16 1 PATCH Miscellaneous (Remove Lidoderm Patch) 1 ea QAM N/A 01/25/17 08:00 02/24/17 07:59 01/25/17 08:05 1 EA Objective Vital Signs Date Time Temp Pulse Resp B/P Pulse Ox O2 Delivery O2 Flow Rate FiO2 01/25/17 14:02 60 16 97 Nasal Cannula 2.0 01/25/17 09:18 82 16 96 Nasal Cannula 2.0 01/25/17 08:00 96 Nasal Cannula 2.0 01/25/17 07:00 36.7 64 18 121/77 96 2.0 01/25/17 00:14 36.7 68 18 100/65 92 2.0 01/25/17 00:00 Nasal Cannula 2.0 01/24/17 20:00 36.7 72 20 136/77 92 Room Air 01/24/17 19:49 36.7 72 20 136/77 92 Room Air 01/24/17 18:46 80 18 129/90 92 Room Air 01/24/17 18:15 92 Room Air 01/24/17 17:15 82 20 134/80 92 Room Air 01/24/17 17:13 79 01/24/17 15:49 36.8 83 20 147/71 95 Room Air Physical Exam General Appearance: no apparent distress Eyes: normal inspection Neck: trachea midline Respiratory/Chest: no respiratory distress (decreased breath sounds on left) Cardiovascular: regular rate, rhythm Abdomen: normal bowel sounds, non tender, soft Extremities: normal range of motion, normal inspection Neurologic/Psychiatric: alert Laboratory Results Last 24 Hours Test 01/24/17 17:05 01/25/17 06:16 White Blood Count 8.56 K/uL 7.42 K/uL Red Blood Count 4.82 M/uL 4.69 M/uL Hemoglobin 14.1 g/dL 13.8 g/dL Hematocrit 41.1 % 40.1 % Mean Corpuscular Volume 85.3 fL 85.5 fL Mean Corpuscular Hemoglobin 29.3 pg 29.4 pg Mean Corpuscular Hemoglobin Concent 34.3 g/dl 34.4 g/dl Platelet Count 142 K/uL 133 K/uL Mean Platelet Volume 11.5 fL 11.5 fL Neutrophils (%) (Auto) 71.8 % 65.3 % Lymphocytes (%) (Auto) 13.7 % 15.5 % Monocytes (%) (Auto) 12.3 % 15.4 % Eosinophils (%) (Auto) 1.6 % 3.2 % Basophils (%) (Auto) 0.4 % 0.5 % Neutrophils # (Auto) 6.15 K/uL 4.84 K/uL Lymphocytes # (Auto) 1.17 K/uL 1.15 K/uL Monocytes # (Auto) 1.05 K/uL 1.14 K/uL Eosinophils # (Auto) 0.14 K/uL 0.24 K/uL Basophils # (Auto) 0.03 K/uL 0.04 K/uL RDW Standard Deviation 44.1 fL 43.6 fL RDW Coefficient of Variation 14.1 % 14.0 % Immature Granulocyte % (Auto) 0.2 % 0.1 % Immature Granulocyte # (Auto) 0.02 K/uL 0.01 K/uL Prothrombin Time 10.8 SECONDS Prothromb Time International Ratio 1.0 Activated Partial Thromboplast Time 25.7 SECONDS Partial Thromboplastin Ratio 1.0 Sodium Level 142 mmol/L 141 mmol/L Potassium Level 3.6 mmol/L 3.7 mmol/L Chloride Level 106 mmol/L 106 mmol/L Carbon Dioxide Level 28 mmol/L 28 mmol/L Anion Gap 8.0 mmol/L 7.0 mmol/L Blood Urea Nitrogen 10 mg/dl 11 mg/dl Creatinine 0.84 mg/dl 0.85 mg/dl Est Creatinine Clear Calc Drug Dose 133.4 ml/min 131.8 ml/min Estimated GFR () 117.5 116.9 Estimated GFR (Non- 101.4 100.9 BUN/Creatinine Ratio 12.0 12.4 Random Glucose 91 mg/dl 99 mg/dl Calcium Level 8.4 mg/dl 8.4 mg/dl Total Bilirubin 0.6 mg/dl Direct Bilirubin 0.2 mg/dl Aspartate Amino Transf (AST/SGOT) 27 U/L Alanine Aminotransferase (ALT/SGPT) 41 U/L Alkaline Phosphatase 50 U/L Total Protein 7.1 gm/dl Albumin 3.6 gm/dl Magnesium Level 2.1 mg/dl Diagnostic Results CT SCAN OF THE CHEST WITHOUT IV CONTRAST CLINICAL HISTORY: Fall. Left-sided chest wall pain. COMPARISON STUDY: Chest x-ray dated 01/23/2017. Chest CT dated 05/24/2013. TECHNIQUE: CT scan of the thorax was performed from the thoracic inlet to the upper abdomen. Images are reviewed in the axial, sagittal, and coronal planes. IV contrast was not administered for this examination as per the referring clinician. CT DOSE: 1020.93 mGy.cm FINDINGS: Thyroid: Imaged portions of the thyroid gland are normal in size and attenuation. Thoracic aorta: The thoracic aorta is normal in caliber and demonstrates standard 3-vessel arch anatomy. Heart: The heart is mildly enlarged and without pericardial effusion. There are scattered coronary artery calcifications. Lungs and pleural spaces: Evaluation of the lung parenchyma is modestly degraded by motion artifact. Mild emphysematous change is observed. There is a small to moderate left pleural effusion with associated left basilar consolidation. A trace right pleural effusion is identified with associated atelectasis. Layering secretions are noted in the trachea. No pneumothorax is seen. Mediastinum: There is no mediastinal lymphadenopathy. Alycia: Not well assessed without IV contrast. Axillae: There is no axillary lymphadenopathy. Upper abdomen: The liver is enlarged and steatotic. Partially visualized upper abdominal viscera is otherwise within normal limits. Skeletal structures: There are acute and nondistracted left anterior 6th and 7th rib fractures. There are mild and age indeterminant superior endplate compression deformities of T5, T7, and T8. No lytic or blastic bony lesions are seen. Arthritic change is noted in the left shoulder. A right cervical rib is incidentally noted. Soft tissues: There is soft tissue contusion the anterior left lower chest. IMPRESSION: 1. Cardiomegaly and emphysema. 2. There are acute nondistracted left anterior 6th and 7th rib fractures. Associated soft tissue contusion is seen in the anterior left lower chest. 3. There are mild and age indeterminant superior endplate compression deformity is at T5, T7, and T8. Correlate for point tenderness. 4. Small to moderate left pleural effusion with associated consolidation. This could represent atelectasis and/or an infectious/inflammatory pneumonitis. 5. There is trace right pleural effusion. 6. Hepatomegaly and hepatic steatosis. Electronically signed by: Faheem Thomas M.D. 01/24/2017 5:05 PM Dictated Date/Time: 01/24/2017 4:43 PM Assessment and Plan (1) Hemothorax Assessment & Plan: Possible hemothorax will follow clinically. Dr. Logan's input appreciated we will observe and drain if needed, presently no need for thoracentesis. (2) Fracture of ribs, two, closed Assessment & Plan: pain management (3) Left lower lobe pneumonia Assessment & Plan: Continue Ceftriaxone and levoflox (4) Gastroesophageal reflux disease (5) Advance care planning Assessment & Plan: Discussed the need for a will, living will, and if needed POA. Patient was appreciative of the information. 35 minutes spent on advanced care planning discussion.
[2017-01-25] MEDS ORDERED: POLYETHYLENE (MIRALAX) 17 GM PACK PO ONE (15:45)
[2017-01-25] MEDS: CEFTRIAXONE SOD INJ 1 GM in DEXTROSE 5% ADD-VANTAGE 50ML 50 ML IV SCH (19:37)
[2017-01-25] MEDS: LEVOFLOXACIN / D5W 500 MG in PREMIXED IN D5W 100 ML IV SCH (20:56)
[2017-01-25] MEDS: BIMATOPROST 0.01% OP SOLN 2.5 ML BTL OP SCH (20:56)
[2017-01-25] MEDS: LIDODERM (LIDOCAINE) PATCH 5% TD SCH (20:58)
[2017-01-26] VITALS (8 sets, daily range): BP systolic 113–123; BP diastolic 76–77; PULSE 66–93; TEMP 36.5–36.8; O2SAT 87–94
[2017-01-26] MEDS: IPRATROPIUM BROMIDE NEB SOLN 0.02% 2.5 ML VIAL INH SCH ×4 (01:40→19:14)
[2017-01-26] MEDS: LEVALBUTEROL 1.25MG/0.5ML NEB INH SCH ×4 (01:40→19:14)
[2017-01-26] MEDS: OXYCODONE/ACETAMINOPHEN 5-325 TAB PO PRN ×4 (02:45→18:52)
[2017-01-26 06:39] LABS: BASO % 0.4 %; BASO ABS # 0.03 K/uL (0-0.2); COMPLETE YES; EOS % 3.7 %; HEMATOCRIT 39.4 % (42-52); IG% 0.1 %; LYMPH % 22.8 %; LYMPH ABS # 1.58 K/uL (1.2-3.4); MEAN CELL VOLUME 85.7 fL (80-100); MEAN CORPUSCULAR HEMOGLOBIN 28.9 pg (25-34); MEAN CORPUSCULAR HGB CONC 33.8 g/dl (32-36); MEAN PLATELET VOLUME 11.5 fL (7.4-10.4); MONO % 13.5 %; NEUT % 59.5 %; PLATELET COUNT 137 K/uL (130-400); WHITE BLOOD COUNT 6.94 K/uL (4.8-10.8)
[2017-01-26 07:09] LABS: BUN/CREATININE RATIO 11.8 (10-20); CALCIUM 8.2 mg/dl (8.5-10.1); CREATININE 0.98 mg/dl (0.60-1.40); MAGNESIUM 2.1 mg/dl (1.8-2.4); POTASSIUM 3.5 mmol/L (3.5-5.1)
[2017-01-26] MEDS: PANTOprazole SOD 40 MG TAB PO SCH (08:23)
[2017-01-26] MEDS: SENNA 8.6 MG TAB PO SCH (08:24)
[2017-01-26] MEDS: POLYETHYLENE (MIRALAX) 17 GM PACK PO SCH (08:24)
--- NOTE | 2017-01-26 09:25 | SURGERY PROGRESS NOTE ---
DATE: 01/26/2017 DATE: 01/26/2017. Mr. Hill is seen today on 01/26/2017. He is able to ambulate. He feels better. He does have decreased breath sounds in the left base. His pain is better. I encouraged him to ambulating in the hallway. Will check an AP and lateral chest x-ray today on him to see his fluid is reaccumulating. If it is stable or less we will leave it alone, but if it has increased we will do a bedside thoracentesis.
--- NOTE | 2017-01-26 10:01 | DIAGNOSTIC IMAGING REPORT ---
CHEST 2 VIEWS ROUTINE CLINICAL HISTORY: pleural effusion COMPARISON STUDY: 01/23/2017 FINDINGS: The heart is mildly enlarged. There are low lung volumes. There is left basilar atelectasis/consolidation. A small subpulmonic left pleural effusion is suspected. There is a trace right pleural effusion. There are minor right basilar atelectatic changes. Left-sided rib fractures are visualized. No pneumothorax is evident.[ IMPRESSION: Left-sided rib fractures. Small subpulmonic left pleural effusion with associated left lower lobe atelectasis/consolidation. Trace right pleural effusion. Electronically signed by: Adam Hou M.D. 01/26/2017 9:58 AM Dictated Date/Time: 01/26/2017 9:57 AM
[2017-01-26] MEDS ORDERED: LIDOCAINE HCL 1% 20 ML VIAL ONE (13:40)
--- NOTE | 2017-01-26 14:07 | DIAGNOSTIC IMAGING REPORT ---
CHEST ONE VIEW PORTABLE CLINICAL HISTORY: left thoracentesis postthoracentesis COMPARISON STUDY: Study earlier same date FINDINGS: No evidence for pneumothorax status post left thoracentesis. Improved aeration left base. IMPRESSION: No evidence pneumothorax status post left-sided thoracentesis. Electronically signed by: Mitul Blum M.D. 01/26/2017 2:05 PM Dictated Date/Time: 01/26/2017 2:04 PM
[2017-01-26 14:59] LABS: PLEURAL FLUID APPEARANCE BLOODY; PLEURAL FLUID COLOR RED; PLEURAL FLUID SOURCE LEFT LUNG; PLEURAL FLUID WBC (A) 3929 /uL
[2017-01-26 15:03] LABS: PLEURAL FLUID MONONUC RELAT 50.2 %; PLEURAL FLUID POLYNUC 49.8 %
--- NOTE | 2017-01-26 15:12 | OPERATIVE REPORT ---
DATE OF OPERATION: 01/26/2017 PROCEDURE: Left thoracentesis. SURGEON: Dr. Logan. PROP SETTER: JEFE Gunn. ANESTHESIA: Local. SPECIFICS OF PROCEDURE: This is a 51-year-old [place] born male, who suffered left blunt chest trauma about 5 days ago and presented to the Emergency Room with increasing pain, was found to have some pleural fluid on the right. He also had what appears to be fractures of his costal cartilage with ribs on the left. I was asked to see him because he had some fluid in his chest. I elected not to do anything yesterday and asked that we repeat a film today. In comparison to his CT scan 48 hours ago, he has an increased amount of fluid. I saw him this morning and told him if the fluid increased, we would do a thoracentesis. We checked an AP and lateral film, it does look like he has had increasing fluid. He has been walking in the hallways. Pain is better; however, I felt that a thoracentesis would be helpful. It should also be noted that this patient has a history of vocal cord carcinoma treated with radiation. I did not see any nodules or evidence of other disease in his chest cavity. DESCRIPTION OF PROCEDURE: With the patient in upright position, ultrasound was used to locate a window just lateral to the mid axillary line posteriorly, at about the sixth interspace. This space was marked. I then prepped and draped in the usual sterile fashion after appropriate timeout had been called. A skin wheal was raised with 25 gauge needle, 1% Xylocaine. A large bore needle was used to enter the pleural cavity and get free flowing bloody fluid. A guidewire was inserted and needle removed. A pink reddish free flowing fluid was obtained through the triple lumen catheter after I slid this over the guidewire. A total of 650 mL was drained. He had air. He did have some reexpansion pain. His lungs sounded better afterwards. We will remove the triple lumen catheter. He had an antimicrobial dressing placed. He tolerated it well. I attest to the content of the Intraoperative Record and any orders documented therein. Any exceptio ns are noted below.
--- NOTE | 2017-01-26 15:13 | Pharmacy Progress Note ---
Automatic IV to PO Conversion Date of Service: Jan 26, 2017. [facility] has identified patient as an appropriate candidate for automatic intravenous to oral conversion. Eligible medication: LVQ 500mg IV every 24 hours. Subjective The patient is a 51 year old male admitted on Jan 24, 2017 at 18:12 for Fracture Of Ribs, Two, Closed,Lt Lower Lobe Pneumo. Objective Vital Signs: Vital Signs Past 12 Hours Date Time Temp Pulse Resp B/P Pulse Ox O2 Delivery O2 Flow Rate FiO2 01/26/17 15:01 36.5 84 20 113/77 94 Room Air 01/26/17 14:54 91 16 94 Room Air 01/26/17 08:00 Room Air 01/26/17 07:34 71 16 94 Room Air 01/26/17 07:05 36.8 66 18 123/76 94 2.0 White Blood Count: Test 01/26/17 06:07 White Blood Count 6.94 K/uL (4.8-10.8) Red Blood Count 4.60 M/uL (4.7-6.1) Hemoglobin 13.3 g/dL (14.0-18.0) Hematocrit 39.4 % (42-52) Mean Corpuscular Volume 85.7 fL (80-100) Mean Corpuscular Hemoglobin 28.9 pg (25-34) Mean Corpuscular Hemoglobin Concent 33.8 g/dl (32-36) Platelet Count 137 K/uL (130-400) Mean Platelet Volume 11.5 fL (7.4-10.4) Neutrophils (%) (Auto) 59.5 % Lymphocytes (%) (Auto) 22.8 % Monocytes (%) (Auto) 13.5 % Eosinophils (%) (Auto) 3.7 % Basophils (%) (Auto) 0.4 % Neutrophils # (Auto) 4.12 K/uL (1.4-6.5) Lymphocytes # (Auto) 1.58 K/uL (1.2-3.4) Monocytes # (Auto) 0.94 K/uL (0.11-0.59) Eosinophils # (Auto) 0.26 K/uL (0-0.5) Basophils # (Auto) 0.03 K/uL (0-0.2) Height (Feet): 5 Height (Inches): 8.00 Weight (Kilograms): 124.000 Type of Diet: Regular Microbiology Date/Time Source Procedure Growth Status 01/26/17 13:44 Pleural Fluid (Thoracentesis) Left Acid Fast Stain Pending Received 01/26/17 13:44 Pleural Fluid (Thoracentesis) Left Mycobacterial Culture Pending Received 01/26/17 13:44 Pleural Fluid (Thoracentesis) Left Fungal Smear Pending Received 01/26/17 13:44 Pleural Fluid (Thoracentesis) Left Fungal Culture Pending Received 01/26/17 13:44 Pleural Fluid (Thoracentesis) Left Gram Stain Pending Received 01/26/17 13:44 Pleural Fluid (Thoracentesis) Left Bacterial Culture Pending Received Assessment & Plan The Infectious Disease Society and the [place] [employer] recommend conversion to oral therapy once a patient is determined to be clinically stable and are able to tolerate oral medications. Patient identified as appropriate candidate for IV to PO conversion of [] based on the following criteria: * Afebrile for greater than or equal to 12 hours * Receiving oral/enteral medications and/or tolerating oral/enteral diet for greater than 24 hours * Improvement in clinical condition evidenced by .. WBC count of 6.94 10^3/uL and trending downward, resolution of signs/symptoms of illness * Hemodynamically stable or * Receiving oral medications and/or tolerating oral diet for greater than 24 hours * Patient does not meet criteria for use of intravenous proton pump inhibitors ( negative for GI bleed, hypersecretory conditions, GERD associated with erosive esophagitis & unable to take PO) Automatic conversion to: LVQ 500mg PO every 24 hours
--- NOTE | 2017-01-26 15:15 | Hospitalist Progress Note ---
Hospitalist Progress Note Date of Service Jan 26, 2017. Subjective Pt evaluation today including: conversation w/ patient patient feels better less short of breath still with pleuritic pain Medications Medications (Trade) Dose Ordered Sig/Eliseo Route Start Time Stop Time Status Last Admin Dose Admin Senna (Senokot Tab) 17.2 mg QAM PO 01/26/17 08:00 02/25/17 07:59 01/26/17 08:24 17.2 MG Polyethylene (Miralax Powder Packet) 17 gm DAILY PO 01/26/17 08:00 02/25/17 07:59 01/26/17 08:24 17 GM Objective Vital Signs Date Time Temp Pulse Resp B/P Pulse Ox O2 Delivery O2 Flow Rate FiO2 01/26/17 15:01 36.5 84 20 113/77 94 Room Air 01/26/17 14:54 91 16 94 Room Air 01/26/17 08:00 Room Air 01/26/17 07:34 71 16 94 Room Air 01/26/17 07:05 36.8 66 18 123/76 94 2.0 01/26/17 01:40 84 16 87 Room Air 01/26/17 00:09 36.7 93 20 123/77 90 Room Air 01/26/17 00:00 90 Room Air 01/25/17 19:15 60 18 97 Nasal Cannula 2.0 01/25/17 16:00 91 Room Air 01/25/17 15:53 36.8 67 18 118/81 91 Room Air Physical Exam General Appearance: no apparent distress Eyes: normal inspection ENT: hearing grossly normal Neck: supple, trachea midline Respiratory/Chest: lungs clear (decreased bs and left base) Abdomen: normal bowel sounds Extremities: normal range of motion Laboratory Results Last 24 Hours Test 01/26/17 00:00 01/26/17 06:07 01/26/17 13:40 01/26/17 13:44 Pleural Fluid pH 7.42 White Blood Count 6.94 K/uL Red Blood Count 4.60 M/uL Hemoglobin 13.3 g/dL Hematocrit 39.4 % Mean Corpuscular Volume 85.7 fL Mean Corpuscular Hemoglobin 28.9 pg Mean Corpuscular Hemoglobin Concent 33.8 g/dl Platelet Count 137 K/uL Mean Platelet Volume 11.5 fL Neutrophils (%) (Auto) 59.5 % Lymphocytes (%) (Auto) 22.8 % Monocytes (%) (Auto) 13.5 % Eosinophils (%) (Auto) 3.7 % Basophils (%) (Auto) 0.4 % Neutrophils # (Auto) 4.12 K/uL Lymphocytes # (Auto) 1.58 K/uL Monocytes # (Auto) 0.94 K/uL Eosinophils # (Auto) 0.26 K/uL Basophils # (Auto) 0.03 K/uL RDW Standard Deviation 43.4 fL RDW Coefficient of Variation 13.9 % Immature Granulocyte % (Auto) 0.1 % Immature Granulocyte # (Auto) 0.01 K/uL Sodium Level 140 mmol/L Potassium Level 3.5 mmol/L Chloride Level 105 mmol/L Carbon Dioxide Level 29 mmol/L Anion Gap 6.0 mmol/L Blood Urea Nitrogen 12 mg/dl Creatinine 0.98 mg/dl Est Creatinine Clear Calc Drug Dose 114.3 ml/min Estimated GFR () 103.0 Estimated GFR (Non- 88.9 BUN/Creatinine Ratio 11.8 Random Glucose 100 mg/dl Calcium Level 8.2 mg/dl Magnesium Level 2.1 mg/dl Pleural Fluid Source LEFT LUNG Pleural Fluid Color RED Pleural Fluid Appearance BLOODY Pleural Fluid WBC 3929 /uL Pleural Fluid RBC 118118 /uL Pleural Fluid Polynuclear WBCs % 49.8 % Pleural Fluid Mononuclear WBCs % 50.2 % Assessment and Plan (1) Hemothorax Assessment & Plan: Probably will not need to have thoracentesis (2) Fracture of ribs, two, closed Assessment & Plan: pain medications prn (3) Left lower lobe pneumonia Assessment & Plan: ceftriaxone (4) Gastroesophageal reflux disease (5) Advance care planning
[2017-01-26 15:49] LABS: PLEURAL FLUID TOTAL PROTEIN 4.3 g/dl
[2017-01-26] MEDS: HYDROmorphone INJ 1 MG/ML SYR IV PRN ×2 (16:30→21:45)
[2017-01-26] MEDS: LEVOFLOXACIN 500 MG TAB PO SCH (17:45)
[2017-01-26] MEDS ORDERED: NURSING VERBAL MED ORDER ONE (18:30)
[2017-01-26] MEDS ORDERED: BISACODYL 10 MG SUPP PR ONE (18:45)
[2017-01-26] MEDS ORDERED: SOD PHOSPHATE/SOD BIPHOSPHATE ENEMA 132 ML BTL PR PRN (18:45)
[2017-01-26] MEDS ORDERED: MAGNESIUM HYDROXIDE SUSP 30 ML UDC PO PRN (19:00)
[2017-01-26] MEDS: LIDODERM (LIDOCAINE) PATCH 5% TD SCH (21:48)
[2017-01-26] MEDS: CEFTRIAXONE SOD INJ 1 GM in DEXTROSE 5% ADD-VANTAGE 50ML 50 ML IV SCH (21:51)
[2017-01-26] MEDS: BIMATOPROST 0.01% OP SOLN 2.5 ML BTL OP SCH (21:51)
[2017-01-26] MEDS ORDERED: BISACODYL 10 MG SUPP PR STA (21:54)
[2017-01-27] VITALS (7 sets, daily range): BP systolic 111–120; BP diastolic 68–79; PULSE 71–80; TEMP 36.5–36.8; O2SAT 90–94
[2017-01-27] MEDS: IPRATROPIUM BROMIDE NEB SOLN 0.02% 2.5 ML VIAL INH SCH ×3 (02:01→15:25)
[2017-01-27] MEDS: LEVALBUTEROL 1.25MG/0.5ML NEB INH SCH ×3 (02:01→15:25)
[2017-01-27] MEDS: HYDROmorphone INJ 1 MG/ML SYR IV PRN ×2 (02:05→08:05)
[2017-01-27 07:09] LABS: BASO % 0.6 %; BASO ABS # 0.05 K/uL (0-0.2); COMPLETE YES; EOS % 3.8 %; IG% 0.3 %; LYMPH % 15.5 %; LYMPH ABS # 1.24 K/uL (1.2-3.4); MEAN CELL VOLUME 86.6 fL (80-100); MEAN CORPUSCULAR HEMOGLOBIN 28.4 pg (25-34); MEAN CORPUSCULAR HGB CONC 32.8 g/dl (32-36); MEAN PLATELET VOLUME 11.6 fL (7.4-10.4); MONO % 13.1 %; NEUT % 66.7 %; PLATELET COUNT 162 K/uL (130-400); RED BLOOD COUNT 4.62 M/uL (4.7-6.1)
--- NOTE | 2017-01-27 07:19 | DIAGNOSTIC IMAGING REPORT ---
CHEST ONE VIEW PORTABLE CLINICAL HISTORY: pleurel effusion COMPARISON STUDY: 01/26/2017 FINDINGS: The heart is mildly enlarged. There is aortic tortuosity. There are progressive bibasilar airspace opacities. There is no overt failure. No pneumothorax is visualized. There is minor blunting of the lateral costophrenic angles.[ IMPRESSION: 1. No pneumothorax 2. Suspected trace pleural effusions 3. Increasing bibasilar opacities, likely atelectatic although an inflammatory process could appear similar Electronically signed by: Adam Hou M.D. 01/27/2017 7:16 AM Dictated Date/Time: 01/27/2017 7:15 AM
[2017-01-27 07:51] LABS: BUN/CREATININE RATIO 15.1 (10-20); CALCIUM 8.3 mg/dl (8.5-10.1); CREATININE 0.95 mg/dl (0.60-1.40); MAGNESIUM 2.1 mg/dl (1.8-2.4); POTASSIUM 3.9 mmol/L (3.5-5.1)
[2017-01-27] MEDS: PANTOprazole SOD 40 MG TAB PO SCH (08:04)
[2017-01-27] MEDS: SENNA 8.6 MG TAB PO SCH (08:04)
[2017-01-27] MEDS: POLYETHYLENE (MIRALAX) 17 GM PACK PO SCH (08:04)
[2017-01-27] MEDS: OXYCODONE/ACETAMINOPHEN 5-325 TAB PO PRN (10:39)
[2017-01-27] MEDS: LEVOFLOXACIN 500 MG TAB PO SCH (10:39)
[2017-01-27] MEDS ORDERED: HYDROmorphone HCL 2 MG TAB PO PRN (12:30)
--- NOTE | 2017-01-27 15:03 | SURGERY PROGRESS NOTE ---
DATE: 01/27/2017 Mr. Hill is seen today on 01/27/2017. His x-ray was much improved after we drained him yesterday. The chemistries on the pleural fluid do indeed suggest that this is hemothorax. At this point, he feels better. I think from a thoracic surgery standpoint, this patient can be safely discharged. I will see him in the office in [address] scan without contrast.
[2017-01-27] MEDS ORDERED: CLB100 PO (17:30)
[2017-01-27] MEDS ORDERED: CEFD1CAP14 PO (17:30)
--- NOTE | 2017-01-27 17:37 | Discharge Instructions ---
Discharge Instructions Date of Service Jan 27, 2017. Admission Reason for Admission: Fracture Of Ribs, Two, Closed,Lt Lower Lobe Pneumo Discharge Discharge Diagnosis / Problem: Pneumonia left, rib fractures, pleural effusion Discharge Goals Goal(s): Improve disease control Activity Recommendations Activity Limitations: per Instructions/Follow-up section . Instructions / Follow-Up Instructions / Follow-Up Primary care physician in [address] Logan 1 week Current Hospital Diet Patient's current hospital diet: Regular Diet Discharge Diet Recommended Diet: Regular Diet Pending Studies Studies pending at discharge: yes (cultures of pleural fluid no growth to date) List of pending studies: Pleural fluid cultures Work Instructions Return To Work: after follow-up (May return after cleared by primary care physician, may not work until seen by primary care physician) Medical Emergencies . Who to Call and When: Medical Emergencies: If at any time you feel your situation is an emergency, please call 911 immediately. . Non-Emergent Contact Non-Emergency issues call your: Primary Care Provider . Past History Medical & Surgical History: (1) Multiple fractures of ribs of left side (2) Left lower lobe pneumonia . "Provider Documentation" section prepared by Uzair Shannon. . VTE Core Measure Inpt VTE Proph given/why not?: SCD's
--- NOTE | 2017-02-02 16:05 | DISCHARGE SUMMARY ---
HISTORY OF PRESENT ILLNESS: Please see dictated H and P for full details of his presentation. The patient is a 51-year-old who fell while using a trampoline, falling on the trampoline pole. He came in complaining of left-sided rib pain. CAT scan of the chest confirmed acute left anterior 6th and 7th rib fractures with left lower lobe pneumonia with a pleural effusion suggestive of hemothorax based upon his history. The patient had a history of laryngeal carcinoma, which has been successfully treated. He was brought in and started on Rocephin with Levaquin and Xopenex treatments. Dr. Logan was consulted for consideration of thoracentesis. Dr. Logan performed a thoracentesis on 01/26/2017, 650 mL were drained, pink reddish free-flowing fluid was obtained. He had no complications in that procedure and was deemed to be stable for discharge on 01/27/2017. DISCHARGE DIAGNOSES: 1. Multiple risk fractures. 2. Left lower lobe pneumonia. 3. Pleural effusion. DISCHARGE MEDICATIONS: He is discharged on this Omnicef 300 mg q. 12, Celebrex 100 mg b.i.d., omeprazole 40 mg daily, fish oil 1 capsule daily and Lumigan eyedrops 1 drop at bedtime. This time spent in review of the chart and discussion with the patient on the day of discharge 31 minutes. He has been asked to remain out of work until cleared by his primary care doctor. For return to work, his followup with his primary care doctor in 1 week. SHABNAM
== END 2017-01-27 18:41 | disposition home or self-care (01) | DRG 183 ==
LOC: ENRESERVTM → ENRESERVDT → C.EDB 15:42 → C.MS4W 18:12
PROVIDERS: ADMIT Hospitalist; ATTEND Hospitalist
PROC: 0W9B3ZZ Drainage of Left Pleural Cavity, Percutaneous Approach (ICD-10-PCS; principal; 2017-01-26)
DX: S22.42XA Multiple fractures of ribs, left side, initial encounter for closed fracture (principal); J18.9 Pneumonia, unspecified organism; S27.1XXA Traumatic hemothorax, initial encounter; J90 Pleural effusion, not elsewhere classified; S22.059A Unspecified fracture of T5-T6 vertebra, initial encounter for closed fracture; M19.012 Primary osteoarthritis, left shoulder; S20.212A Contusion of left front wall of thorax, initial encounter; W01.0XXA Fall on same level from slipping, tripping and stumbling without subsequent striking against object, initial encounter; K21.9 Gastro-esophageal reflux disease without esophagitis; H40.9 Unspecified glaucoma; Z85.21 Personal history of malignant neoplasm of larynx; J43.9 Emphysema, unspecified

== ENCOUNTER 2017-01-29 09:59 | Emergency (ER) | payer BC ==
[2017-01-29] VITALS (12 sets, daily range): BP systolic 112–268; BP diastolic 66–122; PULSE 82–106; TEMP 36.8–37; O2SAT 92–100; Ht 172.7 cm; Wt 120.6 kg
[~2017-01-29] VITALS: Ht 172.7 cm; Wt 120.6 kg
[~2017-01-29 09:59] MED LIST changes: +CEFD1CAP14 PO; +CLB100 PO; -HYDR-5688 PO; +OMEP40CA41 PO; -PRLSR20 PO
[2017-01-29] MEDS ORDERED: ONDANSETRON INJ 2 MG/ML 2 ML VIAL IV STA (10:20)
[2017-01-29] MEDS ORDERED: KETOROLAC TROMETHAMINE 30 MG/ML VIAL IV STA (10:20)
[2017-01-29] MEDS ORDERED: HYDROmorphone INJ 1 MG/ML SYR IV STA ×2 (10:20→12:28)
[2017-01-29] MEDS ORDERED: SODIUM CHLORIDE 0.9% 1000ML 1,000 ML IV STA (10:20)
[2017-01-29 10:38] LABS: BASO % 0.1 %; BASO ABS # 0.01 K/uL (0-0.2); COMPLETE YES; EOS % 1.8 %; IG% 0.3 %; LYMPH % 14.5 %; MEAN CELL VOLUME 85.7 fL (80-100); MEAN CORPUSCULAR HEMOGLOBIN 29.4 pg (25-34); MEAN CORPUSCULAR HGB CONC 34.3 g/dl (32-36); MEAN PLATELET VOLUME 11.3 fL (7.4-10.4); MONO % 5.6 %; NEUT % 77.7 %; PLATELET COUNT 179 K/uL (130-400); WHITE BLOOD COUNT 9.63 K/uL (4.8-10.8)
[2017-01-29 10:56] LABS: BUN/CREATININE RATIO 18.4 (10-20); CALCIUM 8.8 mg/dl (8.5-10.1); CREATININE 0.94 mg/dl (0.60-1.40)
[2017-01-29 10:57] LABS: ISTAT CREATININE 0.8 mg/dl (0.6-1.3); ISTAT HEMOGLOBIN 13.6 g/dl (14.0-18.0); ISTAT IONIZED CALCIUM 1.18 mmol/l (1.12-1.32)
[2017-01-29] MEDS ORDERED: OPTIRAY 320 IV PRN (11:30)
[2017-01-29] MEDS ORDERED: PROPOFOL IV EMULSION 10 MG/ML 20 ML VIAL IV STA (11:52)
[2017-01-29] MEDS ORDERED: ETOMIDATE 2 MG/ML 20 ML VIAL IV STA (11:52)
[2017-01-29] MEDS ORDERED: KETAMINE HCL INJ 50 MG/ML 10 ML VIAL IV STA (11:59)
--- NOTE | 2017-01-29 11:59 | DIAGNOSTIC IMAGING REPORT ---
CT SCAN OF THE CHEST, ABDOMEN, AND PELVIS WITH IV CONTRAST CLINICAL HISTORY: Trauma. Left-sided chest pain. History of recent pleural tube. COMPARISON STUDY: Chest CT dated 01/24/2017. Abdominal CT dated 03/06/2014. TECHNIQUE: Following the IV administration of 93 of Optiray 320, CT scan of the chest, abdomen, and pelvis was performed from the thoracic inlet to the proximal femora. Images are reviewed in the axial, sagittal, and coronal planes. IV contrast was administered without complication. Automated dose control exposure was utilized. CT DOSE: 2211.64 mGy.cm FINDINGS: CHEST: Thyroid: Imaged portions of the thyroid gland are normal in size and attenuation. Thoracic aorta: The thoracic aorta is normal in caliber and demonstrates standard 3-vessel arch anatomy. No dissection is seen. Pulmonary vasculature: The pulmonary trunk is normal in caliber. There are no filling defects identified in the central pulmonary vessels to indicate pulmonary was. Note that this examination was not protocoled for evaluation of the pulmonary arteries. Heart: The heart is normal in size and configuration, and without pericardial effusion. Lungs and pleural spaces: There is a moderate to large left-sided pneumothorax. There is questionable mild rightward deviation of the trachea. No left-sided pneumothorax is seen. Secretions are seen within the left mainstem bronchus. Emphysematous change is observed. There is a small left pleural effusion with dense left basilar consolidation. Mild airspace opacities are present throughout the atelectatic left lung. The right lung appears clear. There is a large defect within the anterior left lower chest wall seen on axial image #215. This measures at least 2.0 cm. Mediastinum: There is no mediastinal hematoma or lymphadenopathy. Alycia: Clear. Axillae: There is no axillary lymphadenopathy. Bony thorax: No lytic or blastic lesions are identified. There are mild superior endplate compression injuries of T5, T7, and T8. Again seen are acute left anterior sixth and seventh rib fractures. Soft tissues: There is extensive subcutaneous emphysema seen along the left chest wall and in the left lower neck. ABDOMEN AND PELVIS: Liver: The contrast-enhanced liver is mildly enlarged, measuring 18.5 cm in length. The liver demonstrates diffusely diminished attenuation consistent with hepatic steatosis. Fatty sparing is seen adjacent to the gallbladder fossa. There is no intrahepatic or ductal dilatation. The hepatic veins and portal veins are patent. Gallbladder: Unremarkable. Spleen: Normal in size and attenuation. Pancreas: Unremarkable. Adrenal glands: Unremarkable. Kidneys: The contrast enhanced kidneys are normal in size and without hydronephrosis. The kidneys enhance symmetrically. Abdominal vasculature: The abdominal aorta is normal in course and caliber noting scattered foci of atherosclerotic calcification. Bowel: The small bowel and colon are normal in course and caliber. The appendix is well-visualized and normal. Peritoneum: There is no intraperitoneal free air or abdominal ascites. Subcutaneous gas dissects around the left rectus abdominis muscle without evidence of intraperitoneal extension. There is a fat-containing umbilical hernia. Lymphadenopathy: None. Pelvic viscera: The bladder, prostate, and seminal vesicles are normal as imaged. Skeletal structures: The lumbosacral spine and bony pelvis appear intact. No lytic or blastic lesions are seen. Soft tissues: Extensive subcutaneous emphysema is seen along the left abdominal wall. This extends in the left groin. IMPRESSION: 1. Moderate to large left-sided pneumothorax. This is new from 01/24/2017. There is questionable mild rightward deviation of the trachea. Developing tension pneumothorax is not excluded. 2. There is a small volume of pleural fluid at the left lung base with associated basilar consolidation. This likely represents hemothorax and atelectasis. 3. There is volume loss throughout the left lung. Scattered airspace opacities could represent atelectasis, mild edema, or a nonspecific pneumonitis. Clinical correlation will be required. 4. Emphysema. The right lung appears clear. 5. Again seen are acute left anterior 6th and 7th rib fractures. Age indeterminant thoracic compression deformities are also unchanged. 6. There is a large defect within the anterior left lower chest wall, likely related to the reported history of recent pleural catheter. This likely represents the etiology of the pneumothorax as gas clearly communicates between the left pleural space and the subcutaneous soft tissues at the site. 7. Extensive subcutaneous emphysema is seen involving the left chest and abdominal wall. This extends from the lower neck to the groin. 8. There is no evidence of solid organ injury in the abdomen or pelvis. 9. Hepatomegaly and hepatic steatosis. 10. Additional findings as above. Findings were discussed with Dr. Givens in the emergency department at the time of interpretation. Electronically signed by: Faheem Thomas M.D. 01/29/2017 11:56 AM Dictated Date/Time: 01/29/2017 11:39 AM
[2017-01-29] MEDS ORDERED: XYLOCAINE 1%/SOD BICARB 20 ML VIAL INFIL ONE (12:00)
[2017-01-29] MEDS ORDERED: KETAMINE HCL INJ 50 MG/ML 10 ML VIAL ONE (12:03)
[2017-01-29] MEDS ORDERED: CEFAZOLIN SOD 1000MG/55 ML D5W IV STA (12:28)
--- NOTE | 2017-01-29 12:33 | DIAGNOSTIC IMAGING REPORT ---
CHEST ONE VIEW PORTABLE CLINICAL HISTORY: Pt c/o chest tube placement COMPARISON STUDY: 01/27/2017, CT scan dated 01/29/2017 FINDINGS: The heart is enlarged. There is mild superior mediastinal widening. There as been interval placement of a left-sided chest tube, tip which projects over the left lung apex. There is an equivocal trace left basilar pneumothorax. There is left-sided subcutaneous emphysema.[ Increased markings within the left lung are likely atelectatic. IMPRESSION: Interval placement of a left-sided chest tube with evacuation of the left pleural air. Electronically signed by: Adam Hou M.D. 01/29/2017 12:31 PM Dictated Date/Time: 01/29/2017 12:29 PM
--- NOTE | 2017-01-29 13:31 | EMERGENCY ROOM VISIT NOTE ---
Pre-Mod Sedation Assessment General Date of Moderate Sedation: Jan 29, 2017. Vital Signs: Vital Signs Past 12 Hours Date Time Temp Pulse Resp B/P Pulse Ox O2 Delivery O2 Flow Rate FiO2 01/29/17 13:14 82 20 142/84 94 Nasal Cannula 3.0 01/29/17 13:07 90 20 147/88 94 Nasal Cannula 3.0 01/29/17 13:00 92 20 131/88 96 3.0 01/29/17 12:58 37.0 84 20 131/88 96 Nasal Cannula 3.0 01/29/17 12:57 95 Nasal Cannula 1.0 01/29/17 12:50 81 26 149/94 98 01/29/17 12:45 85 25 150/82 98 01/29/17 12:42 139/86 01/29/17 12:40 91 17 171/111 98 01/29/17 12:35 84 35 171/110 99 01/29/17 12:34 156/107 01/29/17 12:30 83 28 162/105 100 01/29/17 12:29 99 Nasal Cannula 3.0 01/29/17 12:25 80 33 160/104 98 01/29/17 12:20 01/29/17 12:20 85 33 164/107 100 01/29/17 12:19 163/97 01/29/17 12:18 01/29/17 12:15 89 29 186/114 99 01/29/17 12:13 179/141 01/29/17 12:13 01/29/17 12:12 96 Nasal Cannula 15.0 01/29/17 12:10 104 20 268/122 96 01/29/17 12:07 01/29/17 12:06 210/92 01/29/17 12:05 92 97 01/29/17 12:04 106 22 112/72 93 Room Air 01/29/17 12:04 93 Nasal Cannula 4.0 01/29/17 12:03 218/99 01/29/17 12:00 36.8 100 22 112/78 92 Room Air 01/29/17 12:00 93 95 01/29/17 11:58 85 01/29/17 11:50 100 20 112/78 93 Room Air 01/29/17 11:03 76 18 118/76 01/29/17 10:06 36.7 100 22 135/77 93 Review Cardiovascular: regular rate, rhythm, no edema, no JVD, no murmur, normal peripheral pulses Abdomen: normal bowel sounds, non tender, soft, no organomegaly, no pulsatile mass Lungs: no respiratory distress, no accessory muscle use, + decreased breath sounds (left) Airway Class: I Pre-Sedation Airway Assessment Oral Cavity: WNL Short Thick Neck: Yes Hx of Sleep Apnea: No Smoking Status: Never Smoker Mallampati Classification: Class II ASA Classification: Class I Procedure Planning Contraindications-for Mod Sed: None Yes Notes The planned sedation has been discussed with the patient and consent obtained. I have identified the patient, determined the appropriateness of sedation and have assessed the patient immediately prior to the procedure. All medicine(s) and interventions are by my order.
--- NOTE | 2017-01-29 13:33 | EMERGENCY ROOM VISIT NOTE ---
Post-Moderate Sedation Plan General Date of Moderate Sedation Jan 29, 2017. Vital Signs: Vital Signs Past 12 Hours Date Time Temp Pulse Resp B/P Pulse Ox O2 Delivery O2 Flow Rate FiO2 01/29/17 13:14 82 20 142/84 94 Nasal Cannula 3.0 01/29/17 13:07 90 20 147/88 94 Nasal Cannula 3.0 01/29/17 13:00 92 20 131/88 96 3.0 01/29/17 12:58 37.0 84 20 131/88 96 Nasal Cannula 3.0 01/29/17 12:57 95 Nasal Cannula 1.0 01/29/17 12:50 81 26 149/94 98 01/29/17 12:45 85 25 150/82 98 01/29/17 12:42 139/86 01/29/17 12:40 91 17 171/111 98 01/29/17 12:35 84 35 171/110 99 01/29/17 12:34 156/107 01/29/17 12:30 83 28 162/105 100 01/29/17 12:29 99 Nasal Cannula 3.0 01/29/17 12:25 80 33 160/104 98 01/29/17 12:20 01/29/17 12:20 85 33 164/107 100 01/29/17 12:19 163/97 01/29/17 12:18 01/29/17 12:15 89 29 186/114 99 01/29/17 12:13 179/141 01/29/17 12:13 01/29/17 12:12 96 Nasal Cannula 15.0 01/29/17 12:10 104 20 268/122 96 01/29/17 12:07 01/29/17 12:06 210/92 01/29/17 12:05 92 97 01/29/17 12:04 106 22 112/72 93 Room Air 01/29/17 12:04 93 Nasal Cannula 4.0 01/29/17 12:03 218/99 01/29/17 12:00 36.8 100 22 112/78 92 Room Air 01/29/17 12:00 96 Nasal Cannula 3.0 01/29/17 12:00 93 95 01/29/17 11:58 85 01/29/17 11:50 100 20 112/78 93 Room Air 01/29/17 11:03 76 18 118/76 01/29/17 10:06 36.7 100 22 135/77 93 Review - Discharge Plan Post Moderate Sedation Plan: On clinical assessment, the patient appears to have tolerated the conscious sedation without complications. Patient is recovering as anticipated. Patient will continue to be monitored by nursing and may be discharged when conscious sedation discharge criteria are met.
--- NOTE | 2017-01-29 13:49 | EMERGENCY ROOM VISIT NOTE ---
History Report prepared by Janet: Clarisse Estrella Under the Supervision of: Dr. Kieran Givens M.D. First contact with patient: 10:14 Chief Complaint: ABDOMINAL PAIN Stated Complaint: SWOLLEN ABDOMEN,PT RECENTLY DISCHARGED,SOB Nursing Triage Summary: Triage note; pt reports "i was just discharged wednesday but i am having pain in my left abd and i am having short breathing i know i have some broke ribs." History of Present Illness The patient is a 51 year old male who presents to the Emergency Room with complaints of persistent left upper quadrant abdominal pain starting yesterday. The patient was recently in the hospital after falling onto a pole and breaking some ribs. He also had an infection and hemothorax. He was discharged 2 days ago. He presents to the ED after having pain again and SOB. Source of History: patient Onset: yesterday Position: abdomen (LUQ) Quality: other (pain) Timing: other (persistent) Associated Symptoms: + SOB Review of Systems See HPI for pertinent positives & negatives. A total of 10 systems reviewed and were otherwise negative. Past Medical & Surgical Medical Problems: (1) Advance care planning (2) Encephalitis (3) Fracture of ribs, two, closed (4) Gastroesophageal reflux disease (5) Laryngeal cancer (6) Left lower lobe pneumonia Family History Diabetes mellitus Heart disease Hypertension Social History Smoking Status: Former Smoker Alcohol Use: none Drug Use: none Marital Status: Housing Status: lives with family Occupation Status: employed Current/Historical Medications Scheduled Bimatoprost (Lumigan), 1 DROPS OP HS Cefdinir (Omnicef), 300 MG PO Q12H Celecoxib (Celebrex), 1 CAP PO BID Fish Oil ([place]-3), 1 CAP PO DAILY Omeprazole (Prilosec), 40 MG PO DAILY Allergies Coded Allergies: No Known Allergies (Verified , `, 01/29/17) Physical Exam Vital Signs Date Time Temp Pulse Resp B/P Pulse Ox O2 Delivery O2 Flow Rate FiO2 01/29/17 14:37 84 20 132/66 95 Nasal Cannula 3.0 01/29/17 13:45 84 20 134/84 95 Nasal Cannula 3.0 01/29/17 13:14 82 20 142/84 94 Nasal Cannula 3.0 01/29/17 13:07 90 20 147/88 94 Nasal Cannula 3.0 01/29/17 13:00 92 20 131/88 96 3.0 01/29/17 12:58 37.0 84 20 131/88 96 Nasal Cannula 3.0 01/29/17 12:57 95 Nasal Cannula 1.0 01/29/17 12:50 81 26 149/94 98 01/29/17 12:45 85 25 150/82 98 01/29/17 12:45 86 20 150/82 97 3.0 01/29/17 12:42 139/86 01/29/17 12:40 91 17 171/111 98 01/29/17 12:40 91 20 171/111 98 01/29/17 12:35 84 35 171/110 99 01/29/17 12:34 156/107 01/29/17 12:30 83 28 162/105 100 01/29/17 12:29 99 Nasal Cannula 3.0 01/29/17 12:25 80 33 160/104 98 01/29/17 12:25 84 20 160/104 100 01/29/17 12:20 82 20 164/107 100 01/29/17 12:20 01/29/17 12:20 85 33 164/107 100 01/29/17 12:19 163/97 01/29/17 12:19 163/97 01/29/17 12:18 01/29/17 12:15 89 29 186/114 99 01/29/17 12:15 98 20 186/114 98 3.0 01/29/17 12:13 179/141 01/29/17 12:13 01/29/17 12:12 96 Nasal Cannula 15.0 01/29/17 12:10 96 14 268/122 96 01/29/17 12:10 104 20 268/122 96 01/29/17 12:07 01/29/17 12:06 210/92 01/29/17 12:06 89 20 210/92 97 01/29/17 12:05 92 97 01/29/17 12:04 106 22 112/72 93 Room Air 01/29/17 12:04 93 Nasal Cannula 4.0 01/29/17 12:03 218/99 01/29/17 12:00 36.8 100 22 112/78 92 Room Air 01/29/17 12:00 96 Nasal Cannula 3.0 01/29/17 12:00 93 95 01/29/17 11:58 85 01/29/17 11:50 100 20 112/78 93 Room Air 01/29/17 11:03 76 18 118/76 01/29/17 10:06 36.7 100 22 135/77 93 Physical Exam GENERAL: Patient is a healthy-appearing well-nourished HEAD: Normocephalic atraumatic EYES: Ocular movements intact pupils equal and react to light OROPHARYNX mucous membranes are moist no exudates present no erythema or edema present NECK: Supple no nuchal rigidity CHEST: Bruising present to the left chest wall with exquisite tenderness. LUNGS: Clear and equal to auscultation CARDIAC: Normal S1 and S2 ABDOMEN: Soft with LUQ tenderness BACK: No CVA tenderness EXTREMITIES: No pain upon palpation normal muscle strength in all groups no clubbing cyanosis or edema NEURO: Patient is following commands is answering questions appropriately. Alert and oriented x3 Cranial Nerves 2-12 grossly intact Medical Decision & Procedures ER Provider Diagnostic Interpretation: X-ray results as stated below per interpretation by me and the radiologist. Radiology results as stated below per my review and radiologist interpretation: CHEST ONE VIEW PORTABLE CLINICAL HISTORY: Pt c/o chest tube placement COMPARISON STUDY: 01/27/2017, CT scan dated 01/29/2017 FINDINGS: The heart is enlarged. There is mild superior mediastinal widening. There as been interval placement of a left-sided chest tube, tip which projects over the left lung apex. There is an equivocal trace left basilar pneumothorax. There is left-sided subcutaneous emphysema.[ Increased markings within the left lung are likely atelectatic. IMPRESSION: Interval placement of a left-sided chest tube with evacuation of the left pleural air. Electronically signed by: Adam Hou M.D. 01/29/2017 12:31 PM Dictated Date/Time: 01/29/2017 12:[address] SCAN OF THE CHEST, ABDOMEN, AND PELVIS WITH IV CONTRAST CLINICAL HISTORY: Trauma. Left-sided chest pain. History of recent pleural tube. COMPARISON STUDY: Chest CT dated 01/24/2017. Abdominal CT dated 03/06/2014. TECHNIQUE: Following the IV administration of 93 of Optiray 320, CT scan of the chest, abdomen, and pelvis was performed from the thoracic inlet to the proximal femora. Images are reviewed in the axial, sagittal, and coronal planes. IV contrast was administered without complication. Automated dose control exposure was utilized. CT DOSE: 2211.64 mGy.cm FINDINGS: CHEST: Thyroid: Imaged portions of the thyroid gland are normal in size and attenuation. Thoracic aorta: The thoracic aorta is normal in caliber and demonstrates standard 3-vessel arch anatomy. No dissection is seen. Pulmonary vasculature: The pulmonary trunk is normal in caliber. There are no filling defects identified in the central pulmonary vessels to indicate pulmonary was. Note that this examination was not protocoled for evaluation of the pulmonary arteries. Heart: The heart is normal in size and configuration, and without pericardial effusion. Lungs and pleural spaces: There is a moderate to large left-sided pneumothorax. There is questionable mild rightward deviation of the trachea. No left-sided pneumothorax is seen. Secretions are seen within the left mainstem bronchus. Emphysematous change is observed. There is a small left pleural effusion with dense left basilar consolidation. Mild airspace opacities are present throughout the atelectatic left lung. The right lung appears clear. There is a large defect within the anterior left lower chest wall seen on axial image #215. This measures at least 2.0 cm. Mediastinum: There is no mediastinal hematoma or lymphadenopathy. Alycia: Clear. Axillae: There is no axillary lymphadenopathy. Bony thorax: No lytic or blastic lesions are identified. There are mild superior endplate compression injuries of T5, T7, and T8. Again seen are acute left anterior sixth and seventh rib fractures. Soft tissues: There is extensive subcutaneous emphysema seen along the left chest wall and in the left lower neck. ABDOMEN AND PELVIS: Liver: The contrast-enhanced liver is mildly enlarged, measuring 18.5 cm in length. The liver demonstrates diffusely diminished attenuation consistent with hepatic steatosis. Fatty sparing is seen adjacent to the gallbladder fossa. There is no intrahepatic or ductal dilatation. The hepatic veins and portal veins are patent. Gallbladder: Unremarkable. Spleen: Normal in size and attenuation. Pancreas: Unremarkable. Adrenal glands: Unremarkable. Kidneys: The contrast enhanced kidneys are normal in size and without hydronephrosis. The kidneys enhance symmetrically. Abdominal vasculature: The abdominal aorta is normal in course and caliber noting scattered foci of atherosclerotic calcification. Bowel: The small bowel and colon are normal in course and caliber. The appendix is well-visualized and normal. Peritoneum: There is no intraperitoneal free air or abdominal ascites. Subcutaneous gas dissects around the left rectus abdominis muscle without evidence of intraperitoneal extension. There is a fat-containing umbilical hernia. Lymphadenopathy: None. Pelvic viscera: The bladder, prostate, and seminal vesicles are normal as imaged. Skeletal structures: The lumbosacral spine and bony pelvis appear intact. No lytic or blastic lesions are seen. Soft tissues: Extensive subcutaneous emphysema is seen along the left abdominal wall. This extends in the left groin. IMPRESSION: 1. Moderate to large left-sided pneumothorax. This is new from 01/24/2017. There is questionable mild rightward deviation of the trachea. Developing tension pneumothorax is not excluded. 2. There is a small volume of pleural fluid at the left lung base with associated basilar consolidation. This likely represents hemothorax and atelectasis. 3. There is volume loss throughout the left lung. Scattered airspace opacities could represent atelectasis, mild edema, or a nonspecific pneumonitis. Clinical correlation will be required. 4. Emphysema. The right lung appears clear. 5. Again seen are acute left anterior 6th and 7th rib fractures. Age indeterminant thoracic compression deformities are also unchanged. 6. There is a large defect within the anterior left lower chest wall, likely related to the reported history of recent pleural catheter. This likely represents the etiology of the pneumothorax as gas clearly communicates between the left pleural space and the subcutaneous soft tissues at the site. 7. Extensive subcutaneous emphysema is seen involving the left chest and abdominal wall. This extends from the lower neck to the groin. 8. There is no evidence of solid organ injury in the abdomen or pelvis. 9. Hepatomegaly and hepatic steatosis. 10. Additional findings as above. Findings were discussed with Dr. Givens in the emergency department at the time of interpretation. Electronically signed by: Faheem Thomas M.D. 01/29/2017 11:56 AM Dictated Date/Time: 01/29/2017 11:39 AM Laboratory Results 01/29/17 10:25 Red Blood Count 4.90, Mean Corpuscular Volume 85.7, Mean Corpuscular Hemoglobin 29.4, Mean Corpuscular Hemoglobin Concent 34.3, Mean Platelet Volume 11.3, Neutrophils (%) (Auto) 77.7, Lymphocytes (%) (Auto) 14.5, Monocytes (%) (Auto) 5.6, Eosinophils (%) (Auto) 1.8, Basophils (%) (Auto) 0.1, Neutrophils # (Auto) 7.48, Lymphocytes # (Auto) 1.40, Monocytes # (Auto) 0.54, Eosinophils # (Auto) 0.17, Basophils # (Auto) 0.01 01/29/17 10:25 Test 01/29/17 10:25 01/29/17 10:44 White Blood Count 9.63 K/uL (4.8-10.8) Red Blood Count 4.90 M/uL (4.7-6.1) Hemoglobin 14.4 g/dL (14.0-18.0) Hematocrit 42.0 % (42-52) Mean Corpuscular Volume 85.7 fL (80-100) Mean Corpuscular Hemoglobin 29.4 pg (25-34) Mean Corpuscular Hemoglobin Concent 34.3 g/dl (32-36) Platelet Count 179 K/uL (130-400) Mean Platelet Volume 11.3 fL (7.4-10.4) Neutrophils (%) (Auto) 77.7 % Lymphocytes (%) (Auto) 14.5 % Monocytes (%) (Auto) 5.6 % Eosinophils (%) (Auto) 1.8 % Basophils (%) (Auto) 0.1 % Neutrophils # (Auto) 7.48 K/uL (1.4-6.5) Lymphocytes # (Auto) 1.40 K/uL (1.2-3.4) Monocytes # (Auto) 0.54 K/uL (0.11-0.59) Eosinophils # (Auto) 0.17 K/uL (0-0.5) Basophils # (Auto) 0.01 K/uL (0-0.2) RDW Standard Deviation 43.1 fL (36.4-46.3) RDW Coefficient of Variation 13.7 % (11.5-14.5) Immature Granulocyte % (Auto) 0.3 % Immature Granulocyte # (Auto) 0.03 K/uL (0.00-0.02) Est Creatinine Clear Calc Drug Dose 117.4 ml/min Estimated GFR () 108.4 Estimated GFR (Non- 93.5 BUN/Creatinine Ratio 18.4 (10-20) Calcium Level 8.8 mg/dl (8.5-10.1) Total Bilirubin 0.6 mg/dl (0.2-1) Direct Bilirubin 0.1 mg/dl (0-0.2) Aspartate Amino Transf (AST/SGOT) 21 U/L (15-37) Alanine Aminotransferase (ALT/SGPT) 41 U/L (12-78) Alkaline Phosphatase 57 U/L (45-117) Total Protein 7.4 gm/dl (6.4-8.2) Albumin 3.4 gm/dl (3.4-5.0) Lipase 133 U/L (73-393) Bedside Hemoglobin 13.6 g/dl (14.0-18.0) Bedside Hematocrit 40 % (42-52) Bedside Sodium 138 mEq/L (135-144) Bedside Potassium 3.9 mEq/L (3.3-5.0) Bedside Chloride 103 mEq/L (101-112) Bedside Total CO2 21 mEq/l (24-31) Anion Gap 19.0 mmol/L (16-25) Bedside Blood Urea Nitrogen 17 mg/dl (7-18) Bedside Creatinine 0.8 mg/dl (0.6-1.3) Bedside Glucose (other) 107 mg/dl (70-99) Bedside Ionized Calcium (Altagracia) 1.18 mmol/l (1.12-1.32) Labs reviewed by ED physician. Medications Administered Medications (Trade) Dose Ordered Sig/Eliseo Route Start Time Stop Time Status Last Admin Dose Admin Sodium Chloride (Nss 1000ml) 1,000 ml @ 999 mls/hr Q1H1M STAT IV 01/29/17 10:20 01/29/17 11:20 DC 01/29/17 10:28 999 MLS/HR Hydromorphone HCl (Dilaudid Inj) 1 mg NOW STAT IV 01/29/17 10:20 01/29/17 10:23 DC 01/29/17 10:30 1 MG Ondansetron HCl (Zofran Inj) 4 mg NOW STAT IV 01/29/17 10:20 01/29/17 10:23 DC 01/29/17 10:28 4 MG Ketorolac Tromethamine (Toradol Inj) 30 mg NOW STAT IV 01/29/17 10:20 01/29/17 10:23 DC 01/29/17 10:29 30 MG Hydromorphone HCl (Dilaudid Inj) 1 mg NOW STAT IV 01/29/17 12:28 01/29/17 12:30 DC 01/29/17 12:40 1 MG Cefazolin Sodium (Ancef 1000mg/55 ml D5W) 1,000 mg NOW STAT IV 01/29/17 12:28 01/29/17 12:30 DC 01/29/17 12:40 1,000 MG Procedure Procedural Sedation Indication tube thoracostomy. Total time: 20 minutes. Written consent was obtained after the risks and benefits were explained to the patient, including, but not limited to aspiration, allergic reaction, breathing difficulties, cardiac complications, vomiting, pain, event recall, bleeding, and /or infection. Pre-sedation examination and paperwork completed. The patient was on 100% oxygen via NRB prior to the procedure. Continous end tidal CO2 monitoring, pulse oximetry, and cardiac monitoring were utilized. Suction, airway equipment, medications, respiratory equipment, and appropriate personnel were prepared prior to the initiation of the procedure. A time out was taken. Sedation was achieved utilizing 100 mg of ketamine and 15 mg of propofol. After I observed the patient had reached the appropriate level of sedation the main procedure was performed without complication. Sedation was discontinued and the monitoring continued. The patient recovered quickly from the effects of the medication without complication or adverse event. Tube Thoracostomy Indication: Pneumothorax Written consent was obtained after the risks and benefits were explained, including but not limited to cardiac/liver/lung injury, bleeding, scarring, infection, pain, and bone/joint/nerve damage. At this time, the risks of the procedure are less than the risks of NOT performing the procedure. A time out was taken and the correct patient and site identified. The patient was prepped and draped in the standard surgical fashion. 1% lidocaine without epinephrine was infused over the left fifth intercostal space into the subcutaneous tissue. A 3 cm incision was made transversely in the mid axillary line over the fifth intercostal rib. Blunt dissection was done with a Treva clamp to the area of the intercostal muscles; 1% lidocaine again was used for anesthesia in intercostal muscle and subpleural space. Blunt dissection was then done with the Treva clamps into the pleural cavity over the rib. Air was noted upon entering the pleural cavity. The pleural cavity was digitally inspected to confirm that the pleural cavity had been entered. A 22 German thoracostomy tube was inserted in the superior/posterior portion of the pleural space. 1-0 silk suture was used to approximate the skin above the thoracostomy tube and then used to secure the thoracostomy tube. An occlusive dressing was then placed and the thoracostomy tube was hooked to the Pleur-evac suction. The patient tolerated the procedure well without complications. A postoperative x-ray was then performed which showed the thoracostomy tube in the correct position. ED Course 1016: Past medical records reviewed. The patient was evaluated in room A4B. A complete history and physical examination was performed. 1020: Toradol Inj 30 mg IV, Zofran Inj 4 mg IV, Dilaudid Inj 1 mg IV, NSS 1000 ml @ 999 mls/hr IV. 1144: The patient has a pneumothorax. He was moved to room B1. A chest tube was placed according to the procedure note above. 1146: I attempted to consult Dr. Logan, [facility] [place], but I was informed that he is unavailable due to a family emergency. 1152: Propofol 60 mg IV. 1159: Ketamine HCl 60 mg IV. 1200: Lidocaine HCl 20 ml INFIL. 1228: Cefazolin Sodium 1000 mg IV, Dilaudid Inj 1 mg IV. 1245: I discussed the patient's case with Dr. Salgado, [facility] - [facility] surgery. He states that he will not take the patient and that he should be transferred. 1308: I discussed the patient's case with Dr. Humphrey, [facility]. The patient has been accepted for transfer. 1315: Upon reexamination the patient is doing well. I discussed results and treatment plan with the patient. He verbalizes agreement and understanding. The patient will be transferred to [facility] for further management. Medical Decision Differential diagnosis: Etiologies such as appendicitis, diverticulitis, PUD, biliary pathology, UTI, pancreatitis, obstruction, mesenteric ischemia, aortic pathology, infections, inflammatory bowel disease, renal colic, as well as others were entertained. This is a 51-year-old male who presents emergency department complaining of chest pain. The patient was sent for CAT scan which was concerning for a pneumothorax with tension. Based on these findings the patient was immediately placed in a 1 and he signed a consent to have both conscious sedation as well as the pneumothorax reduced by chest tube. An IV was established, patient given normal saline bolus, Dilaudid. Chest tube was placed as above. I did discuss the case with surgery who is uncomfortable keeping the patient at [facility] as there is no thoracic surgeon available. For this reason I did discuss the case with trauma surgery in [place]. The patient's hypertension and tachycardia improved after placement of the chest tube. The patient willingly signed a consent and realizes that the risks of being transported include MVA as well as decompensation en route however the benefits outweigh the risks and that there is a thoracic surgeon available. In addition the patient was written for pain medications including morphine and Ativan and was transferred via ambulance. Consults Time Called: 1142 Consulting Physician: Dr. Logan [facility] [place] Returned Call: [phone] He is unavailable due to a family emergency. Additional Consults: Time Called: 1245 Consulted Physician: [facility] Returned Call: [phone] Additional Comments: I discussed the patient's case with him. He states that he will not take the patient and that he should be transferred. Time Called: 1255 Consulted Physician: Dr. Humphrey, [facility] Surgery Returned Call: [phone] Additional Comments: I discussed the patient's case with Dr. Humphrey, he has accepted the patient for transfer. Impression Primary Impression: Pneumothorax Critical Care I have personally spent greater than 90 minutes of critical care time in the direct management of this patient. This includes bedside care, interpretation of diagnostic studies, and testing, discussion with consultants, patient, and family members, and other required patient management activities. This 90 minutes is in excess of all separately billable procedures. Scribe Attestation The scribe's documentation has been prepared under my direction and personally reviewed by me in its entirety. I confirm that the note above accurately reflects all work, treatment, procedures, and medical decision making performed by me. Departure Information Dispostion Transfer Acute Care Facility Referrals Yani Hurt MD (PCP) Patient Instructions My [facility] Problem Qualifiers Primary Impression: Pneumothorax Pneumothorax type: traumatic Encounter type: initial encounter Qualified Codes: S27.0XXA - Traumatic pneumothorax, initial encounter
--- NOTE | 2017-01-29 14:23 | EMERGENCY ROOM VISIT NOTE ---
History Report prepared by Janet: Rebeca Drummond Under the Supervision of: Dr. Tere Betancur D.O. Chief Complaint: ABDOMINAL PAIN Stated Complaint: SWOLLEN ABDOMEN,PT RECENTLY DISCHARGED,SOB Nursing Triage Summary: Triage note; pt reports "i was just discharged wednesday but i am having pain in my left abd and i am having short breathing i know i have some broke ribs." History of Present Illness The patient is a 51 year old male who presents to the Emergency Room with complaints of sob. Review of Systems Please refer to pt's main ER note for additional ROS. +cp, +abd pain, +sob, no cough Past Medical & Surgical Medical Problems: (1) Advance care planning (2) Encephalitis (3) Fracture of ribs, two, closed (4) Gastroesophageal reflux disease (5) Laryngeal cancer (6) Left lower lobe pneumonia Family History Diabetes mellitus Heart disease Hypertension Social History Smoking Status: Former Smoker Alcohol Use: none Drug Use: none Marital Status: Housing Status: lives with family Occupation Status: employed Current/Historical Medications Scheduled Bimatoprost (Lumigan), 1 DROPS OP HS Cefdinir (Omnicef), 300 MG PO Q12H Celecoxib (Celebrex), 1 CAP PO BID Fish Oil ([place]-3), 1 CAP PO DAILY Omeprazole (Prilosec), 40 MG PO DAILY Allergies Coded Allergies: No Known Allergies (Verified , `, 01/29/17) Physical Exam Vital Signs Date Time Temp Pulse Resp B/P Pulse Ox O2 Delivery O2 Flow Rate FiO2 01/29/17 14:37 84 20 132/66 95 Nasal Cannula 3.0 01/29/17 13:45 84 20 134/84 95 Nasal Cannula 3.0 01/29/17 13:14 82 20 142/84 94 Nasal Cannula 3.0 01/29/17 13:07 90 20 147/88 94 Nasal Cannula 3.0 01/29/17 13:00 92 20 131/88 96 3.0 01/29/17 12:58 37.0 84 20 131/88 96 Nasal Cannula 3.0 01/29/17 12:57 95 Nasal Cannula 1.0 01/29/17 12:50 81 26 149/94 98 01/29/17 12:45 85 25 150/82 98 01/29/17 12:45 86 20 150/82 97 3.0 01/29/17 12:42 139/86 01/29/17 12:40 91 17 171/111 98 01/29/17 12:40 91 20 171/111 98 01/29/17 12:35 84 35 171/110 99 01/29/17 12:34 156/107 01/29/17 12:30 83 28 162/105 100 01/29/17 12:29 99 Nasal Cannula 3.0 01/29/17 12:25 80 33 160/104 98 01/29/17 12:25 84 20 160/104 100 01/29/17 12:20 82 20 164/107 100 01/29/17 12:20 01/29/17 12:20 85 33 164/107 100 01/29/17 12:19 163/97 01/29/17 12:19 163/97 01/29/17 12:18 01/29/17 12:15 89 29 186/114 99 01/29/17 12:15 98 20 186/114 98 3.0 01/29/17 12:13 179/141 01/29/17 12:13 01/29/17 12:12 96 Nasal Cannula 15.0 01/29/17 12:10 96 14 268/122 96 01/29/17 12:10 104 20 268/122 96 01/29/17 12:07 01/29/17 12:06 210/92 01/29/17 12:06 89 20 210/92 97 01/29/17 12:05 92 97 01/29/17 12:04 106 22 112/72 93 Room Air 01/29/17 12:04 93 Nasal Cannula 4.0 01/29/17 12:03 218/99 01/29/17 12:00 36.8 100 22 112/78 92 Room Air 01/29/17 12:00 96 Nasal Cannula 3.0 01/29/17 12:00 93 95 01/29/17 11:58 85 01/29/17 11:50 100 20 112/78 93 Room Air 01/29/17 11:03 76 18 118/76 01/29/17 10:06 36.7 100 22 135/77 93 Physical Exam PERRLA, EOMI, no edema/lesions in oropharynx neck soft, NT, FROM, no swelling decreased BS left chest with bruising left chest wall/ribs abd soft/NT Medical Decision & Procedures Laboratory Results 01/29/17 10:25 Red Blood Count 4.90, Mean Corpuscular Volume 85.7, Mean Corpuscular Hemoglobin 29.4, Mean Corpuscular Hemoglobin Concent 34.3, Mean Platelet Volume 11.3, Neutrophils (%) (Auto) 77.7, Lymphocytes (%) (Auto) 14.5, Monocytes (%) (Auto) 5.6, Eosinophils (%) (Auto) 1.8, Basophils (%) (Auto) 0.1, Neutrophils # (Auto) 7.48, Lymphocytes # (Auto) 1.40, Monocytes # (Auto) 0.54, Eosinophils # (Auto) 0.17, Basophils # (Auto) 0.01 01/29/17 10:25 Test 01/29/17 10:25 01/29/17 10:44 White Blood Count 9.63 K/uL (4.8-10.8) Red Blood Count 4.90 M/uL (4.7-6.1) Hemoglobin 14.4 g/dL (14.0-18.0) Hematocrit 42.0 % (42-52) Mean Corpuscular Volume 85.7 fL (80-100) Mean Corpuscular Hemoglobin 29.4 pg (25-34) Mean Corpuscular Hemoglobin Concent 34.3 g/dl (32-36) Platelet Count 179 K/uL (130-400) Mean Platelet Volume 11.3 fL (7.4-10.4) Neutrophils (%) (Auto) 77.7 % Lymphocytes (%) (Auto) 14.5 % Monocytes (%) (Auto) 5.6 % Eosinophils (%) (Auto) 1.8 % Basophils (%) (Auto) 0.1 % Neutrophils # (Auto) 7.48 K/uL (1.4-6.5) Lymphocytes # (Auto) 1.40 K/uL (1.2-3.4) Monocytes # (Auto) 0.54 K/uL (0.11-0.59) Eosinophils # (Auto) 0.17 K/uL (0-0.5) Basophils # (Auto) 0.01 K/uL (0-0.2) RDW Standard Deviation 43.1 fL (36.4-46.3) RDW Coefficient of Variation 13.7 % (11.5-14.5) Immature Granulocyte % (Auto) 0.3 % Immature Granulocyte # (Auto) 0.03 K/uL (0.00-0.02) Est Creatinine Clear Calc Drug Dose 117.4 ml/min Estimated GFR () 108.4 Estimated GFR (Non- 93.5 BUN/Creatinine Ratio 18.4 (10-20) Calcium Level 8.8 mg/dl (8.5-10.1) Total Bilirubin 0.6 mg/dl (0.2-1) Direct Bilirubin 0.1 mg/dl (0-0.2) Aspartate Amino Transf (AST/SGOT) 21 U/L (15-37) Alanine Aminotransferase (ALT/SGPT) 41 U/L (12-78) Alkaline Phosphatase 57 U/L (45-117) Total Protein 7.4 gm/dl (6.4-8.2) Albumin 3.4 gm/dl (3.4-5.0) Lipase 133 U/L (73-393) Bedside Hemoglobin 13.6 g/dl (14.0-18.0) Bedside Hematocrit 40 % (42-52) Bedside Sodium 138 mEq/L (135-144) Bedside Potassium 3.9 mEq/L (3.3-5.0) Bedside Chloride 103 mEq/L (101-112) Bedside Total CO2 21 mEq/l (24-31) Anion Gap 19.0 mmol/L (16-25) Bedside Blood Urea Nitrogen 17 mg/dl (7-18) Bedside Creatinine 0.8 mg/dl (0.6-1.3) Bedside Glucose (other) 107 mg/dl (70-99) Bedside Ionized Calcium (Altagracia) 1.18 mmol/l (1.12-1.32) Medications Administered Medications (Trade) Dose Ordered Sig/Eliseo Route Start Time Stop Time Status Last Admin Dose Admin Sodium Chloride (Nss 1000ml) 1,000 ml @ 999 mls/hr Q1H1M STAT IV 01/29/17 10:20 01/29/17 11:20 DC 01/29/17 10:28 999 MLS/HR Hydromorphone HCl (Dilaudid Inj) 1 mg NOW STAT IV 01/29/17 10:20 01/29/17 10:23 DC 01/29/17 10:30 1 MG Ondansetron HCl (Zofran Inj) 4 mg NOW STAT IV 01/29/17 10:20 01/29/17 10:23 DC 01/29/17 10:28 4 MG Ketorolac Tromethamine (Toradol Inj) 30 mg NOW STAT IV 01/29/17 10:20 01/29/17 10:23 DC 01/29/17 10:29 30 MG Hydromorphone HCl (Dilaudid Inj) 1 mg NOW STAT IV 01/29/17 12:28 01/29/17 12:30 DC 01/29/17 12:40 1 MG Cefazolin Sodium (Ancef 1000mg/55 ml D5W) 1,000 mg NOW STAT IV 01/29/17 12:28 01/29/17 12:30 DC 01/29/17 12:40 1,000 MG Procedure Procedural Sedation Indication Pneumothorax. Total time: 20 minutes. Written consent was obtained after the risks and benefits were explained to the patient, including, but not limited to aspiration, allergic reaction, breathing difficulties, cardiac complications, vomiting, pain, event recall, bleeding, and /or infection. Pre-sedation examination and paperwork completed. The patient was on 100% oxygen via NRB prior to the procedure. Continous end tidal CO2 monitoring, pulse oximetry, and cardiac monitoring were utilized. Suction, airway equipment, medications, respiratory equipment, and appropriate personnel were prepared prior to the initiation of the procedure. A time out was taken. Sedation was achieved utilizing Ketamine and Propofol. Please refer to nursing procedure notes for times and amount. After I observed the patient had reached the appropriate level of sedation the main procedure was performed without complication. Sedation was discontinued and the monitoring continued. The patient recovered quickly from the effects of the medication without complication or adverse event. Medical Decision Pt in need of emergent chest tube placement for pneumothorax. I performed procedural sedation and Dr Givens performed chest tube placement. Impression Primary Impression: Pneumothorax Departure Information Dispostion Transfer Acute Care Facility Referrals Yani Hurt MD (PCP) Patient Instructions My [facility] Problem Qualifiers Primary Impression: Pneumothorax Pneumothorax type: unspecified pneumothorax Qualified Codes: J93.9 - Pneumothorax, unspecified
== END 2017-01-29 14:21 | disposition short-term general hospital (02) ==
LOC: C.EDB 10:00
DX: S27.0XXA Traumatic pneumothorax, initial encounter (principal); R10.12 Left upper quadrant pain; R06.02 Shortness of breath; K21.9 Gastro-esophageal reflux disease without esophagitis; Z79.899 Other long term (current) drug therapy; Z85.21 Personal history of malignant neoplasm of larynx; Z87.01 Personal history of pneumonia (recurrent); Z87.891 Personal history of nicotine dependence; Z82.49 Family history of ischemic heart disease and other diseases of the circulatory system; Z83.3 Family history of diabetes mellitus; W17.2XXA Fall into hole, initial encounter

== ENCOUNTER → 2017-04-20 | Outpatient (CLI) | payer BC ==
[~2017-04-20] MED LIST changes: -CEFD1CAP14 PO
== END | disposition home or self-care (01) ==
LOC: C.LABSPEC 11:18
PROVIDERS: ATTEND Family Medicine
DX: J02.9 Acute pharyngitis, unspecified (principal)

== ENCOUNTER → 2017-10-07 | Outpatient (CLI) | payer BC ==
[2016-10-07 14:53] VITALS: BP 136/87; PULSE 75
[2017-10-07 13:26] VITALS: BP 131/84; PULSE 100; TEMP 36.9; O2SAT 94
--- NOTE | 2017-10-07 15:21 | Radiation Oncology Follow-Up ---
Radiation Oncology Follow-Up Date of Visit Oct 07, 2017. Reason For Visit Mr. 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 Radiation Completion Date 07/20/13 Interim History Mr. Hill was noticing intermittent episodes of hoarseness. He had been tried on a course of prednisone with improvement that however did not last. He ultimately had him seen by Dr. Geiger for evaluation and recommendations on treatment options. After an endoscopic evaluation he placed patient on a course of Augmentin after seeing some whitish plaque on the vocal cords. The patient had an immediate improvement in his voice quality that lasted for several months. His hoarseness subsequently returned and he returned to see Dr. Geiger he treated him in July with a second course of Augmentin. The patient again had a response with improvement in his voice quality. This response has continued without relapse. The patient denies any soreness in his throat. His appetite remains good and he denies any weight loss. He denies any decrease in saliva or change in taste or appetite. Allergies Coded Allergies: No Known Allergies (Verified , `, 01/29/17) Home Medications Scheduled Bimatoprost (Lumigan), 1 DROPS OP HS Fish Oil ([place]-3), 1 CAP PO DAILY Review of Systems Gastrointestinal: Symptoms: WNL Oral: Symptoms: No Problems Other Oral Symptoms: dry throat scratchy throat Respiratory: Symptoms: WNL Other Respiratory: Minor hoarseness persists, but pt pleased w/improvement w /antibiotic Urinary: Symptoms: WNL Skin: Symptoms: No Problems Physical Exam Vital Signs Date Time Temp Pulse Resp B/P (MAP) Pulse Ox O2 Delivery O2 Flow Rate FiO2 10/07/17 13:26 36.9 100 20 131/84 94 Fatigue: None General Appearance: WD/WN, no apparent distress Pain Management Patient Reports Pain: No Side: Bilateral Patient Preferred Pain Scale: 0 - 10 Initial Pain Intensity: 0.0 Pain Management Plan The patient is experiencing no pain so no pain management plan is required. Laboratory Laboratory Results: were reviewed, and no pertinent findings Pathology Pathology Results: were reviewed, not applicable Imaging Imaging Studies: were reviewed, and no pertinent findings Assessment & Plan (Attending) Mr. 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 He has had issues with intermittent hoarseness which have recently improved following evaluation and treatment by Dr. Geiger. I told the patient is important to continue a follow-up and he wished to be followed by Dr. Mora. I told him that we do not need to see him if he is being seen by ENT with follow-up endoscopies. The patient was content with this and therefore will follow exclusively with Dr. Mora in the future. The patient understands and we would be happy to see him again in follow-up if requested. However at this time no follow-up appointment was made for him. Total Time (Attending) In Follow-Up I spent 15 minutes in discussion of treatment for his hoarseness and discussion of follow-up protocol and 5 minutes reviewing his chart and in preparation of this document. Copy To Kade Geiger MD; Yani Hurt M.D.
== END | disposition home or self-care (01) ==
LOC: C.ONC 13:11
PROVIDERS: ATTEND Physician Assistant Medical
DX: Z08 Encounter for follow-up examination after completed treatment for malignant neoplasm (principal); Z92.3 Personal history of irradiation; Z85.89 Personal history of malignant neoplasm of other organs and systems

== ENCOUNTER → 2017-10-22 | Outpatient (CLI) | payer BC ==
[~2017-10-22] MED LIST changes: -CLB100 PO; -OMEP40CA41 PO
[2017-10-22 14:23] LABS: BLOOD UREA NITROGEN 11 mg/dl (7-18); CALCIUM 8.9 mg/dl (8.5-10.1); CARBON DIOXIDE 25 mmol/L (21-32); CREATININE 0.86 mg/dl (0.60-1.40); GLUCOSE 98 mg/dl (70-99); POTASSIUM 4.2 mmol/L (3.5-5.1); SODIUM 138 mmol/L (136-145)
[2017-10-22 14:28] LABS: CHOLESTEROL 159 mg/dl (0-200); LDL CHOLESTEROL CALCULATED 99 mg/dl
== END | disposition home or self-care (01) ==
LOC: C.LABBC 09:57
PROVIDERS: ATTEND Family Medicine
DX: Z00.00 Encounter for general adult medical examination without abnormal findings (principal); E78.6 Lipoprotein deficiency; Z12.5 Encounter for screening for malignant neoplasm of prostate